=== PATIENT | male | born 1955 | race Caucasian/White ===

== ENCOUNTER 2022-12-28 09:51 | Outpatient (CLI) | payer MEDICARE, BC, SELFPAY ==
--- NOTE | 2022-12-28 10:15 | CRLHL7_ITS ---
For Patients: As a result of the Cures Act, medical imaging exams and procedure reports are released immediately into your electronic medical record. You may view this report before your referring provider. If you have questions, please contact your health care provider. INDICATION: Resting tremors. TECHNIQUE: Brain MRI without contrast. The following sequences were obtained: Sagittal T1 weighted sequence. DWI and ADC mapping sequences. Axial FLAIR and DELL T2 weighted sequences. COMPARISON: None. FINDINGS: No evidence of acute ischemia. No evidence of acute or chronic intracranial blood products. Scattered FLAIR hyperintensities within the supratentorial white matter, typical for chronic microvascular ischemic changes. No mass effect or herniation. No hydrocephalus or extra-axial collections. The pituitary gland, parasellar structures and optic chiasm are normal. Posterior fossa is normal. All the major intracranial vascular structures demonstrate normal flow-related signal. The orbital contents are normal. No calvarial or skull base marrow replacing process. No obstructive sinus disease. Left-sided mastoid fluid. No extracranial soft tissue findings. IMPRESSION: 1. No acute ischemia or other acute intracranial pathology. 2. Mild chronic microvascular ischemic changes within the supratentorial white matter. Dictated by Lorenzo Carpio MD @ 12/28/2022 2:36:21 PM (Electronically Signed)
== END 2022-12-28 09:52 | disposition home or self-care (01) ==
LOC: MRI 09:55
PROVIDERS: PCP Family Medicine; Visit Provider Psychiatry & Neurology Neurology
DX: R25.1 Tremor, unspecified (principal); I67.82 Cerebral ischemia
CPT/HCPCS: 70551

== ENCOUNTER 2023-12-19 07:23 | Outpatient (CLI) | payer MEDICARE, BC, SELFPAY ==
[2023-12-19] MEDS: SODIUM CHLORIDE 0.9 % (FLUSH) 10 ML SYRINGE IVF (09:50)
[2023-12-19] MEDS: REGADENOSON 0.4 MG/5 ML SYRINGE IVP (09:50)
[2023-12-19 11:07] VITALS: BP 116/81; PULSE 81
--- NOTE | 2023-12-19 11:44 | W.PM.STED ---
Stress Test Note Date Date of test: 12/19/23 Providers Primary care provider: Jas Shearer Stress test physician: Joshua Michelle Stress Test Note Stress test ordered: Lexiscan Indication for test: Chest pain Stress test medicine: Lexiscan Results discussion: Patient is a very nice 68-year-old gentleman who presents here for the above test, after discussion the risks benefits and side effects he would like to proceed, cardiac stress test medical history form is reviewed entirely. Pretest EKG shows normal sinus rhythm, with a ventricular rate of 72 and a blood pressure 132/83. Nondescript ST wave changes are noted inferior laterally, with T-wave flattening. Q-waves are noted in lead 2, and AVF. Standard Lexiscan protocol is done over a 5 minute. There were no complications his maximum was 139 which is 108% of the maximum, he had no complaints, and there were no anginal equivalents. Review of the tracing did not show any dysrhythmias, and there was no worsening of his pre-existing ST wave changes. Impression: Negative electrographic portion of Lexiscan Follow up suggested: Await nuclear imaging which will be read by nuclear Medicine. Clinical correlation with this will be needed. Patient recovered well and there were no complications, left this testing facility in good condition.
== END 2023-12-19 07:24 | disposition home or self-care (01) ==
LOC: STRESS 07:24
PROVIDERS: PCP Family Medicine; Visit Provider Family Medicine
DX: R07.9 Chest pain, unspecified (principal)
CPT/HCPCS: 78452; 93016; 93017; A9500; J2785

== ENCOUNTER 2024-11-16 10:45 | Outpatient (RCR) | payer MEDICARE, BC, SELFPAY ==
--- NOTE | 2024-10-19 11:30 | PT.OPEX ---
PT [place] Out[facility] Eval PT [facility] Out[facility] Eval Start: 10/19/24 10:32 Freq: Status: Active Protocol: Document 10/19/24 10:32 CRP (Rec: 10/19/24 11:28 CRP [id number]) E-signed By Stalin Omer PT Physical Therapy Outpatient Evaluation Insurance Information Recert Due Date 01/17/25 Insurance Name Medicare B Medical Diagnosis LBP Post lumbar spine fusion L4-S1 Referring MD Dr Barajas Subjective Subjective 2019 pt had an infection in his spine. Had L4-S1 fusion 2019. About 2 years ago started having LBP. This pain progressed and more recently has gotten pretty bad. Pain is up to 5/10 when standing and walking. Needs to sit a lot to take brakes. Pain calms quickly with sitting. Sleep is fine. Stiff in the morning . 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 No LE pain. No LE numbness/ tingling. 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 Slight lean forward. Hyperlordotic TL spine. Trunk ROM: Flex min/mod dec, Ext mod dec with LBP, R SB mod dec, L SB mod dec with LBP, L rot mod dec with pain, R rot mod dec LE ROM: L LE WNL. R hip ER limited at 40 deg. Bilat hip ext mod restriction. All other R LE motions WNL. SLR: Negative on R. L positive at 65 deg for LBP MMT: Bilat myotomes WNL. Bilat hip ext 4-/5. Bilat hip abd 4-/5. PPIVM testing: flex restricted above L4. SB testing min dec without pain. Bilat rot min dec without pain. Assessment Assessment/Impression Pt presents to the clinic with c/o persistent LBP. Pt had multilevel lumbar fusion dating back to 2019 with a more recent issue of worsening LBP over the last 2 years. Pts signs and sxs are consistent with mechanical dysfunction of the lumbopelvic region and resulting nociceptive pain mechanisms. Pts presentation is characterized by painful loss of lumbar spine ROM, restricted PROM of lumbar spine, adverse neurodynamics, poor lumbopelvic control and lower quadrant weakness. Skilled PT is necessary to address the above impairments and improve functional mobility. 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 Pt will be independent with HEP in 6 weeks. 2. Pt will walk for exer x 15 min with 80% decrease in pain in 10 weeks. 3. 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 Coordination/Communication With Referral Source Treatment Plan/Direct Interventions Gait Training,Joint Mobilization,Manual Therapy, Neuromuscular Re-ed,Self-Care/ Home Management,Therapeutic Activities,Therapeutic Exercises Frequency/Duration 1-2x/wk for 12 weeks Patient Will Be Discharged From Therapy Completion of LTG(s),Skills Plateau,Independent w/HEP, Independently Progressing Evaluation Billing Untimed Code Treatment Minutes 40 Complexity Moderate Certification Information Initial Certification Date 10/19/24 Ending Certification Date 01/17/25 Provider Signature Required Yes Provider Signature Shows Agreement With POC & Medical Necessity Physician NPI Number Write NPI# Here Physician Comment/Change : Physician Signature & Date Requested Please Sign/Date Here
== END 2025-03-16 23:59 | disposition home or self-care (01) ==
PROVIDERS: PCP Family Medicine; Visit Provider Family Medicine
DX: M54.50 Low back pain, unspecified (principal); Z98.1 Arthrodesis status; Z51.89 Encounter for other specified aftercare
CPT/HCPCS: 97110; 97140; 97162

== ENCOUNTER 2025-01-11 14:13 | Outpatient (CLI) | payer MEDICARE, BC, SELFPAY | END 2025-01-11 14:14 | disposition home or self-care (01) | LOC: MRI 14:14 | PROVIDERS: PCP Family Medicine; Visit Provider Orthopaedic Surgery | DX: M25.511 Pain in right shoulder (principal); M75.101 Unspecified rotator cuff tear or rupture of right shoulder, not specified as traumatic; M19.011 Primary osteoarthritis, right shoulder | CPT/HCPCS: 73221 ==

== ENCOUNTER 2025-01-25 15:54 | Outpatient (CLI) | payer MEDICARE, BC, SELFPAY | END 2025-01-25 15:55 | disposition home or self-care (01) | PROVIDERS: PCP Family Medicine; Visit Provider Family Medicine | DX: R53.83 Other fatigue (principal); R35.1 Nocturia; N40.1 Benign prostatic hyperplasia with lower urinary tract symptoms; Z13.21 Encounter for screening for nutritional disorder; Z01.818 Encounter for other preprocedural examination; Z12.5 Encounter for screening for malignant neoplasm of prostate | CPT/HCPCS: 82607; 84443; G0103 ==

== ENCOUNTER 2025-02-04 06:41 | Day surgery (SDC) | payer MEDICARE, BC, SELFPAY ==
[2025-02-04] VITALS (14 sets, daily range): BP systolic 102–128; BP diastolic 53–75; PULSE 58–73; RESP 12–19; TEMP 36.1–36.4; O2SAT 89–96; BMI 31.7
[2025-02-04] MEDS: ACETAMINOPHEN 500 MG TABLET 1000 MG PO (07:25)
[2025-02-04] MEDS: SODIUM CHLORIDE 0.9 % (FLUSH) 10 ML SYRINGE IVF (07:25)
[2025-02-04] MEDS: LACTATED RINGERS 1000 ML 1,000 ML 100 ML IV ×2 (07:25→11:17)
[2025-02-04] MEDS: OXYCODONE (CR) 10 MG TAB.ER.12H PO (07:25)
[2025-02-04] MEDS: CELECOXIB 200 MG CAPSULE PO (07:25)
[2025-02-04] MEDS: MIDAZOLAM HCL 1 MG/ML inj IVP (08:30)
[2025-02-04] MEDS: fentaNYL 100 MCG/2 ML inj IVP (08:30)
--- NOTE | 2025-02-04 08:49 | SUR.PREOP ---
TIME?OUT:?0830 PT/RN/MDA?VERIFICATION?OF?SURGICAL?SITE,?PROCEDURE,?AND?CONSENT OBTAINED?PRIOR?TO?INVASIVE?PROCEDURE.
[2025-02-04] MEDS: CEFAZOLIN 2 GM INJ IVP (08:55)
--- NOTE | 2025-02-04 09:36 | P.ANES_ITS ---
Anesthesia Charges Start Date/Time Anesthesia Start Date: 02/04/25 Anesthesia Start Time: 08:40 Stop Date/Time Anesthesia Stop Date: 02/04/25 Anesthesia Stop Time: 10:50 Summary Extremes of Age - Over 70 or under 1: MDA Coding CPT Codes CPT Codes: ANESTH SHOULDER REPLACEMENT - 76134 ([id number]) P3 - PATIENT W/SEVERE SYS DISEASE, QK - FIRER RETORT 2-4 CNCRNT ANES PROC, QX - MOBILE ELECTRONICS INSTALLER SVC W/ MD MED DIRECTION Additional Codes: Summary - Extremes of Age - Over 70 or under 1: MDA ([id number])
--- NOTE | 2025-02-04 09:36 | P.NB_ITS ---
Nerve Block Nerve Block Time Seen by Provider: 08:32 Date Seen: 02/04/25 Type of block requested by surgeon for post-operative analgesia: supraclavicular Side: right Time out performed: Yes Verification of patient name: Yes Verification of date of : Yes Site marking: site marked Name of person performing procedure: Clarke Continuous monitoring Was continuous monitoring of O2 sat, B/P, bead forming machine operator, recorded every 15 minutes?: Yes Procedure Checklist: sterile prep, needles and gloves Ultrasound guided. Images saved: Yes Medications given in 5ml increments after negative aspiration: Ropivicaine %: 0.5 mL: 20 Needle gauge: 22 Precedex (mcg): 25 Patient tolerated procedure well: Yes Block Charges Block Charge (with Pro Fee): Brachial Plexus Use of Ultrasound Machine for Block: Yes- US Guidance/pain block
--- NOTE | 2025-02-04 09:36 | W.ANESCHARGE ---
Anesthesia Charges Start Date/Time Anesthesia Start Date: 02/04/25 Anesthesia Start Time: 08:40 Stop Date/Time Anesthesia Stop Date: 02/04/25 Anesthesia Stop Time: 10:50 Summary Extremes of Age - Over 70 or under 1: MDA Coding CPT Codes CPT Codes: ANESTH SHOULDER REPLACEMENT - 65144 ([id number]) P3 - PATIENT W/SEVERE SYS DISEASE, QK - DANCE ARTIST 2-4 CNCRNT ANES PROC, QX - BASTING CLEANER SVC W/ MD MED DIRECTION Additional Codes: Summary - Extremes of Age - Over 70 or under 1: MDA ([id number])
--- NOTE | 2025-02-04 10:25 | P.ORPRC_ITS ---
Procedure Note Date of procedure: 02/04/25 Procedure: PREOPERATIVE DIAGNOSIS: Right shoulder rotator cuff tear, labral tearing, AC joint arthrosis POSTOPERATIVE DIAGNOSIS: Right shoulder rotator cuff tear, labral tearing, AC joint arthrosis NAME OF OPERATION: Right shoulder arthroscopic subacromial decompression, limited glenohumeral joint debridement, distal clavicle excision, mini open rotator cuff repair SURGEON: Sj Lindsey MD MACHINED PARTS METAL SPRAYER: Ana Valderrama PA-C ANESTHESIA: Supraclavicular block plus general endotracheal ESTIMATED BLOOD LOSS: 5 mL COMPLICATIONS: None SPECIMENS: None DRAINS: None PREOPERATIVE ANTIBIOTICS: Ancef 2 grams INDICATIONS: The patient is a 69-year-old with a history of right shoulder pain secondary to the above diagnoses. Despite appropriate non operative management, they continue to have symptoms. Operative intervention was recommended. The risks, benefits and expected outcomes were discussed in detail. These included but were not limited to: Infection, bleeding, injury to blood vessel or nerve, venous thromboembolism. All questions were answered to their satisfaction. PROCEDURE: A supraclavicular block was placed by Anesthesia. General anesthesia was administered. The patient was placed in the high beach chair position. The right shoulder was prepped and draped in the usual sterile fashion. The glenohumeral joint was infiltrated with 20 mL of normal saline with epinephrine. The posterior portal was established, the arthroscope was introduced. The anterior portal was established, Diagnostic arthroscopy was performed with findings as follows: The biceps is torn and retracted out of the glenohumeral joint . The anterior, posterior and superior labrum shows age- appropriate degenerative tearing. Articular surfaces on the humeral head shows a small patch of grade 2 change centrally, the glenoid has some grade 2/3 change inferiorly. There are no loose bodies. There is a full-thickness tear of the supraspinatus. The arthroscope was placed in the subacromial space, the lateral portal was e stablished. The Arthrex Whitetail was used to dissect the acromion free. The CA ligament was recessed off the anterior acromion, the AC joint was exposed. There was a huge hook to the anterior acromion. This appears like an os acromiale, but is more anteriorly based. It may be calcification of the CA ligament or a true os acromiale. It was freed up with the Whitetail and removed with the pituitary rongeur. The acromioplasty was performed with the bur in the posterior portal. The bur was then placed in the lateral portal and the lateral and anterior aspect of the acromion were resected. The undersurface of the distal clavicle was resected through the lateral portal. Finally, the bur was placed in the anterior portal and the remainder of the distal clavicle was resected for a total of 10 mm. An accessory anterolateral portal was placed. The subacromial/subdeltoid bursa was aggressively debrided. There is a full-thickness tear of the supraspinatus and infraspinatus. Arthroscopic instruments were removed. The accessory anterolateral portal was extended proximally and distally, subcutaneous dissection was taken with electrocautery to the deltoid. The deltoid was divided in line with its fibers. The static retractor was placed. The subacromial/subdeltoid bursa was debrided with the Guerra scissors. The greater tuberosity was debrided to punctate bleeding bone using the arthroscopic bur. We attempted to find the biceps in the bicipital groove, but were unsuccessful. We elected not to proceed with sub pec biceps tenodesis. Two Arthrex BioComposite FiberTak anchors were placed just off the articular surface. Both limbs of the FiberWire and fiber tape were passed using the scorpion. A fiber link was placed in the leading edge of the rotator cuff x2. We tied the 2 central FiberWire sutures over the rotator cuff. We then proceeded with a lateral row of SwiveLock anchors x 2 crossing the FiberTape and incorporating the FiberWire and fiber link into each lateral row anchor. This provides an anatomic, watertight repair of the rotator cuff. There is no tension on the repair with the shoulder at 0? abduction. The wound was irrigated with normal saline off the pump. The deltoid was repaired with an 0 Vicryl in an interrupted nsaoip-rd-ewewa fashion. Subcutaneous tissues were closed with a 3-0 Vicryl. Skin was closed with a 3-0 Monocryl in a subcuticular fashion. A dry dressing and sling were applied. Sponge and needle counts were correct x2. The patient tolerated the procedure well. There were no apparent complications. They were carefully transferred to the hospital bed and taken to the postanesthesia care unit in satisfactory condition. PLAN: The patient will be discharged to home. No active range of motion of the shoulder will be allowed for 6 weeks postoperatively. They can work on active range of motion of the elbow, wrist and fingers. They will follow up in the office next week for a wound check and an AP and transscapular Y-view of the shoulder prior to being seen.
--- NOTE | 2025-02-04 10:52 | P.ANES_ITS ---
Anesthesia Charges Start Date/Time Anesthesia Start Date: 02/04/25 Anesthesia Start Time: 08:40 Stop Date/Time Anesthesia Stop Date: 02/04/25 Anesthesia Stop Time: 10:50 Summary Extremes of Age - Over 70 or under 1: SCREEN PRINTING PRESS OPERATOR Coding CPT Codes CPT Codes: ANESTH SURGERY OF SHOULDER - 74377 ([id number]) P3 - PATIENT W/SEVERE SYS DISEASE, QK - BATTERY PLATE REMOVER 2-4 CNCRNT ANES PROC, QX - SCREEN PRINTING PRESS OPERATOR SVC W/ MD MED DIRECTION Additional Codes: Summary - Extremes of Age - Over 70 or under 1: SCREEN PRINTING PRESS OPERATOR ([id number])
--- NOTE | 2025-02-04 10:52 | W.ANESCHARGE ---
Anesthesia Charges Start Date/Time Anesthesia Start Date: 02/04/25 Anesthesia Start Time: 08:40 Stop Date/Time Anesthesia Stop Date: 02/04/25 Anesthesia Stop Time: 10:50 Summary Extremes of Age - Over 70 or under 1: FISH AND GAME WARDEN Coding CPT Codes CPT Codes: ANESTH SURGERY OF SHOULDER - 44238 ([id number]) P3 - PATIENT W/SEVERE SYS DISEASE, QK - MATHEMATICAL STATISTICIAN 2-4 CNCRNT ANES PROC, QX - FISH AND GAME WARDEN SVC W/ MD MED DIRECTION Additional Codes: Summary - Extremes of Age - Over 70 or under 1: FISH AND GAME WARDEN ([id number])
== END 2025-02-04 13:16 | disposition home or self-care (01) ==
LOC: OR 06:42
PROVIDERS: PCP Family Medicine; Visit Provider Orthopaedic Surgery
PROC: (CPT 23412; principal; 2025-02-04 08:45)
DX: M75.101 Unspecified rotator cuff tear or rupture of right shoulder, not specified as traumatic (principal); M19.011 Primary osteoarthritis, right shoulder; S43.431A Superior glenoid labrum lesion of right shoulder, initial encounter; G89.18 Other acute postprocedural pain
CPT/HCPCS: 29826; 29824; 29822; 23412; 01630; 01638; 64415; 76942; 99100; A9270; C1713; J0690; J1100; J2250; J2371; J2405; J2704; J2795; J3010; J3490; J7120

== ENCOUNTER 2025-02-05 10:28 | Emergency (ER) | payer MEDICARE, BC, SELFPAY ==
--- OUTSIDE RECORDS SUMMARY | 2025-02-05 10:30 | XMS_ITS ---
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 Medications Administered No information available. Allergies, Adverse Reactions, Alerts Observed no known allergies at Results Date Name Value Unit Range Flag Description Office Visit: Office Visit f ax MEDS REVIEW Done Documenta tion of current medications (procedure) DEMENTIA2 Assessment of cognition performed and results reviewed. Total score [MMS E] [id number] Normal Total scor e [MoCA] MOCA SCORE 28 Total scor e [MMSE] Plan of Care Type Date Detail Appointment 10:00 AM nAnmarie Peguero PA-C, [address], [address], [place], [address], Appointment 09:20 AM [place], [address], [address], [place], [address], Pending order Follow up Pending order Follow up Pending order Follow up LELA Pending order Follow up LELA Pending order Home Sleep Study - HST Pending order Home Sleep Study - HST Pending order Work Note Pending order Patient Instruct ions Pending order Patient Instruct ions Pending order Work Note Procedures Code Procedure Name Date Entry Date [facility] 74801-0 MOCA ORDERS Patient Instructions ORDERS Patient Instructions Vital Signs No information available. Immunizations No information available. Advance Directives No information available.
--- OUTSIDE RECORDS SUMMARY | 2025-02-05 10:31 | XMS_ITS | Clinical Summary ---
Author Organization [facility] Address [address] , [address] [place] [address] Phone Care Team Providers Care Felt Hat Inspector And Packer Name Role Phone [facility] Unavailable Unava ilable Conditions or Problems Problem Name Problem Code Onset Date Status Entry Date Provider Comment Standard Description Annotate Apneic episode 0105976 (SNOMED CT) 02/02 Active 02/02 Annmarie Peguero PA-C Apnea Parkinson's disease without dyskinesia, without mention of fluctuations 17432830 (SNOMED CT) 08/05 Active 08/05 Arleth De Jesus Parkinson's disease Fatigue 96261138 (SNOMED CT) 02/03 Active 02/03 Uziel Bautista MD Fatigue Hx of snoring 617628035 (SNOMED CT) 02/03 Active 02/03 Uziel Bautista MD H/O: respiratory disease 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 02/01 Uziel Bautista MD Parkinsonism Parkinson's disease 52939059 (SNOMED CT) 08/05 Inactive 08/05 Uziel Bautista MD Parkinson's disease Parkinsonism 90560578 (SNOMED CT) 02/01 Removed 02/01 Annmarie Peguero PA-C Parkinsonism Cog wheel rigidity 00472357 (SNOMED CT) 12/21 Active 12/21 Uziel Bautista MD Cogwheel muscle rigidity Bradykinesia 965694872 (SNOMED CT) 12/21 Active 12/21 Uziel Bautista MD Bradykinesia Resting tremor 88257606 (SNOMED CT) 12/21 Active 12/21 Uziel Bautista MD Resting tremor Medications Medication Instructions Start Date Stop Date Generic Name NDC Provider CARBIDOPA-LEVO DOPA 25-100 MG TABS 2 tablet by mouth three times a day ; take it about 1 hr before meals 8 carbidopa-lev odopa [id number] Annmarie WASHBURN-C CARBIDOPA-LEVO DOPA 25-100 MG TABS Take 2 tablet by mouth three times a day ; take it about 1 hr before meals 8 carbidopa-lev odopa [id number] Annmarie WASHBURN-C CARBIDOPA-LEVO DOPA 25-100 MG TABS 1/2 tablet by mouth as directed half tab 3x per day at 6 am, 1030 am pm, and 4 pm. Increase by half tab every week until 2 tabs 3x per day. 3 carbidopa-lev odopa [id number] Uziel Bautista MD CARBIDOPA-LEVO DOPA 25-100 MG TABS 2 tablet by mouth three times a day ; take it about 1 hr before meals 8 carbidopa-lev odopa 58136571111 Uziel Bautista MD TAMSULOSIN HCL 0.4 MG CAPS tamsulosin [id number] Annmarie WASHBURN-C CARBIDOPA-LEVO DOPA 25-100 MG TABS 1/2 tablet by mouth as directed half tab 3x per day at 6 am, 1030 am pm, and 4 pm. Increase by half tab every week until 2 tabs 3x per day. 3 carbidopa-lev odopa [id number] Uziel Bautista MD Medications Administered No information available. Allergies, Adverse Reactions, Alerts Observed no known allergies at Results Date Name Value Unit Range Flag Description Internal Other: Verbal Autho rization/Emergency Contact - OBS VERBAL_EMER DONE Verbal authorization and emergency contact Internal Other: Authorizatio n - OBS [email or web address] Yes Authoriza tion: Release of Information - Authorize [facility] - Payment and Healthcare Operations ROIAUTHOTHER Yes Authoriz ation: Release of Information - Authorize Others/Insurance - Payment and Healthcare Operations HIECONSENT Yes Consent To Release information to the Health Information Exchange (HIE) [email or web address] Yes Authorizat ion: Authorization for [facility] to leave messages, voicemail, send text messages, send emails AUTHRELHCARE Yes Authoriz ation: Release/Retrieval of Information to/from Healthcare Facilities, Pharmacy Benefit Payers and Providers AUTHPRIVPRAC Yes Authoriz ation: Notice of privacy practices AUTHBENEFIT Yes Authoriza tion: Assignment of Benefits and Payment Agreement Office Visit: Office Visit f ax MEDS REVIEW Done Documenta tion of current medications (procedure) DEMENTIA2 Assessment of cognition performed and results reviewed. Total score [M MSE] [id number] Normal Total scor e [MoCA] MOCA SCORE 28 Total scor e [MMSE] Plan of Care Type Date Detail Appointment 10:00 AM Annmarie Peguero PA-C, [address], [address], [place], [address], Appointment 09:20 [place], [address], [address], [place], [address], Referral Other Referral Pending order Follow up Pending order Follow up Pending order Follow up LELA Pending order Follow up LELA Pending order Home Sleep Study - HST Pending order Home Sleep Study - HST Pending order Follow up LELA Pending order Work Note Pending order Patient Instruct ions Pending order Patient Instruct ions Pending order Work Note Pending order Work Note Pending order Follow up Pending order Follow up LELA Pending order Follow up LELA Pending order Follow up Pending order Follow up with N eurologist or LELA Pending order Follow up in cli michelle or telemedicine Pending order Follow up in cli michelle or telemedicine Pending order [facility] Pending order MRI-Brain W/O Procedures Code Procedure Name Date Entry Date ORDERS Follow up LELA LOINC 63719-1 MOCA ORDERS Patient Instructions ORDERS Patient Instructions ORDERS Other Referral ORDERS Follow up LELA ORDERS Follow up ORDERS Work Note LOINC 80390-2 MOCA LOINC 87589-4 MOCA LOINC 33527-5 MOCA [facility]-[id number] Documentation of current medicatio ns SCT-[id number] Documentation of current medicatio ns ORDERS Follow up with Neurologist or LELA SCT-[id number] Documentation of current medicatio ns ORDERS Follow up in clinic or telemedicine 08/05 ORDERS [facility] 20 07/02/17 ORDERS Follow up in clinic or telemedicine 02/01 [id number] MRI-Brain W/O Vital Signs Date Name Value Unit Description Heart Rate 68 /min pulse rate Immunizations No information available. Advance Directives No information available.
[2025-02-05 10:37] VITALS: BP 125/86; PULSE 69; RESP 18; TEMP 36.1; O2SAT 96; BMI 28.4
--- NOTE | 2025-02-05 11:22 | ED_ITS ---
HPI - General Adult General Chief complaint: Post Op Complication Stated complaint: surgery 02/04 lots of pain Time Seen by Provider: 02/05/25 10:49 History of Present Illness HPI narrative: Patient is a 69-year-old gentleman who had repair of a torn rotator cuff yesterday. He was doing fairly well with his pain control which included oxycodone until this morning when the block on the right shoulder of stop working. Since that time he has had refractory pain limited to the right rozina ulder. It is worse with activity. Patient has chronic parkinsonism and that has been unchanged. He has no signs of systemic infection. No drainage or discharge no difficulties with the incisions. Patient is requesting improved pain control. Related Data Home Medications ?Medication ?Instructions ?Recorded ?Confirmed carbidopa 25 mg-levodopa 100 mg 2 tab PO TID 01/25/25 02/05/25 tablet Previous Rx's ?Medication ?Instructions ?Recorded finasteride 5 mg tablet 5 mg PO QDAY #90 tabs 01/25/25 oxycodone 5 mg tablet 5 mg PO Q4H PRN pain #42 tabs 02/04/25 Allergies Allergy/AdvReac Type Severity Reaction Status Date / Time No Known Drug Allergies Allergy Verified 02/05/25 10:44 Review of Systems Status of ROS: Reports: 10 or more systems reviewed and unremarkable except as noted in History and below [facility] Medical History Hx of osteomyelitis ?Z87.39 - Personal history of other diseases of the musculoskeletal system and connective tissue (ICD-10) Osteomyelitis ?M86.9 - Osteomyelitis, unspecified (ICD-10) Discitis of lumbosacral region ?M46.47 - Discitis, unspecified, lumbosacral region (ICD-10) Sanborn of toe ?L84 - Corns and callosities (ICD-10) Surgical History History of arthroscopy of right shoulder (02/04/25) ?Z98.890 - Other specified postprocedural states (ICD-10) Status post lumbar spinal fusion ?Z98.1 - Arthrodesis status (ICD-10) Social History Narrative: -Basilia Smoking Status: Never smoker Do you use any of these nicotine containing products: None Second hand tobacco smoke exposure: No How often do you have a drink containing alcohol: never AUDIT-C Alcohol total score: 0 Non-prescribed substance use: denies use Caffeine: No Are you now , , , , never or living with a partner: Social isolation score (0-1 are the most socially isolated patients): 1 Exam Narrative: Exam Narrative: EXAM GENERAL: Patient appears comfortable and well. EYES: No scleral icterus. ENT: Tympanic membranes and oropharynx normal. THYROID: no thyroid nodules or thyromegaly. LYMPH: No supraclavicular or cervical lymphadenopathy. SKIN: Surgical incisions clean and dry the right shoulder. EXT: No dependent lower extremity pedal edema. HEART: Regular rate and rhythm with no murmurs, rubs, or gallops. LUNGS: Clear to auscultation bilaterally with no crackles or wheezes. ABD: Soft, non tender, non distended. PSYCH: Good eye contact, speech is not pressured. Musculoskeletal: Range of motion mildly reduced as to be expected postoperatively. Const: Vital Signs, click to edit/add: Vital Signs - 24 hr 02/05/25 10:37 Temperature 97 F L Pulse Rate [Right Pulse Oximeter] 69 Respiratory Rate 18 Blood Pressure [Ri ght Upper Arm] 125/86 Pulse Oximetry 96 Oxygen Delivery Me thod Room Air Course Course ED Course: Patient seen and examined. Will have anesthesia repeat shoulder block and then reassess. Vital Signs Vital signs: Initial Vital Signs Temperature 97 F L 02/05/25 10:37 Temperature Source Temporal Artery Scan 02/05/25 10:37 Pulse Rate 69 02/05/25 10:37 Pulse Rhythm Regular 02/05/25 10:37 Pulse Strength 3+ Normal 02/05/25 10:37 Respiratory Rate 18 02/05/25 10:37 Blood Pressure 125/86 02/05/25 10:37 Blood Pressure Mean 99 02/05/25 10:37 Blood Pressure Position Sitting 02/05/25 10:37 Pulse Oximetry 96 02/05/25 10:37 Oxygen Delivery Method Room Air 02/05/25 10:37 Vital Signs Temperature 97 F L 02/05/25 10:37 Pulse Rate 69 02/05/25 10:37 Respiratory Rate 18 02/05/25 10:37 Blood Pressure 125/86 02/05/25 10:37 Pulse Oximetry 96 02/05/25 10:37 Oxygen Delivery Method Room Air 02/05/25 10:37 Temperature 97 F L 02/05/25 10:37 Pulse Rate 69 02/05/25 10:37 Respiratory Rate 18 02/05/25 10:37 Blood Pressure 125/86 02/05/25 10:37 Pulse Oximetry 96 02/05/25 10:37 Oxygen Delivery Method Room Air 02/05/25 10:37 Medical Decision Making MDM Narrative Medical decision making narrative: Patient is a 69-year-old gentleman comes in today with postoperative pain 1 day following rotator cuff repair on the right. Examination is normal postoperatively no signs of infection. We did have anesthesia woman repeat the block. He will continues oxycodone Tylenol rest ice and follow-up as directed. No signs of any other issues during today's assessment. Discharge Plan Discharge Clinical Impression: Post-operative pain Patient Disposition: Home, Self-Care Condition: Stable Instructions: Pain Management (ED) Additional Instructions: Oxycodone as directed Tylenol Ice Continue current cares. Activity Level: No Restrictions Discharge Diet: Regular Prescriptions: No Action finasteride 5 mg tablet 5 mg PO QDAY Qty: 90 3RF carbidopa-levodopa 25-100 mg tablet 2 tab PO TID oxycodone 5 mg tablet 5 mg PO Q4H PRN (Reason: pain) Qty: 42 0RF Follow Up/Referrals: Jas Shearer MD [Primary Care Provider] - Stand Alone Forms: SeeClickFix Info Instructions
--- NOTE | 2025-02-05 11:38 | W.PM.NB ---
Nerve Block Nerve Block Time Seen by Provider: 11:15 Date Seen: 02/05/25 Type of block requested by surgeon for post-operative analgesia: supraclavicular Side: left Time out performed: Yes Verification of patient name: Yes Verification of date of : Yes Site marking: site marked Name of person performing procedure: Jonathan Villavicencio Procedure Ultrasound guided. Images saved: Yes Medications given in 5ml increments after negative aspiration: Marcaine %: 0.5 mL: 5 Needle gauge: 20 and Exparel mL: 10 Needle gauge: 22 Decadron (mg): 10 Precedex (mcg): 20 Block Charges Block Charge (with Pro Fee): Brachial Plexus Use of Ultrasound Machine for Block: Yes- US Guidance/pain block
--- OUTSIDE RECORDS SUMMARY | 2025-02-05 12:01 | XMS_ITS ---
Author Organization [facility] Address 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 Medications Administered No information available. Allergies, Adverse Reactions, Alerts Observed no known allergies at Results Date Name Value Unit Range Flag Description Office Visit: Office Visit f ax MEDS REVIEW Done Documenta tion of current medications (procedure) DEMENTIA2 Assessment of cognition performed and results reviewed. Total score [MMS E] [id number] Normal Total scor e [MoCA] MOCA SCORE 28 Total scor e [MMSE] Plan of Care Type Date Detail Appointment 10:00 AM Annmarie Peguero PA-C, [address], [address], [place], [address], Appointment 09:20 [place], [address], [address], [place], [address], Pending order Follow up Pending order Follow up Pending order Follow up LELA Pending order Follow up LELA Pending order Home Sleep Study - HST Pending order Home Sleep Study - HST Pending order Work Note Pending order Patient Instruct ions Pending order Patient Instruct ions Pending order Work Note Procedures Code Procedure Name Date Entry Date [facility] 71389-2 MOCA ORDERS Patient Instructions ORDERS Patient Instructions Vital Signs No information available. Immunizations No information available. Advance Directives No information available.
--- OUTSIDE RECORDS SUMMARY | 2025-02-05 12:01 | XMS_ITS | Clinical Summary ---
Author Organization [facility] Address [address] , [address] [place] [address] Phone Care Team Providers Care Slinger Sequins Name Role Phone [facility], [facility] Unavailable Unava ilable Conditions or Problems Problem Name Problem Code Onset Date Status Entry Date Provider Comment Standard Description Annotate Apneic episode 7688147 (SNOMED CT) 02/02 Active 02/02 Annmarie Peguero PA-C Apnea Parkinson's disease without dyskinesia, without mention of fluctuations 01979905 (SNOMED CT) 08/05 Active 08/05 Arleth De Jesus Parkinson's disease Fatigue 88675892 (SNOMED CT) 02/03 Active 02/03 Uziel Bautista MD Fatigue Hx of snoring 474023413 (SNOMED CT) 02/03 Active 02/03 Uziel Bautista MD H/O: respiratory disease Parkinsonism 36156708 (SNOMED CT) 02/01 Resolved 02/01 Uziel Bautista MD Parkinsonism Parkinson's disease 09463924 (SNOMED CT) 08/05 Inactive 08/05 Uziel Bautista MD Parkinson's disease Parkinsonism 47095938 (SNOMED CT) 02/01 Removed 02/01 Annmarie Peguero PA-C Parkinsonism Cog wheel rigidity 71482783 (SNOMED CT) 12/21 Active 12/21 Uziel Bautista MD Cogwheel muscle rigidity Bradykinesia 323905504 (SNOMED CT) 12/21 Active 12/21 Uziel Bautista MD Bradykinesia Resting tremor 72359056 (SNOMED CT) 12/21 Active 12/21 Uziel Bautista MD Resting tremor Medications Medication Instructions Start Date Stop Date Generic Name NDC Provider CARBIDOPA-LEVO DOPA 25-100 MG TABS 2 tablet by mouth three times a day ; take it about 1 hr before meals 8 carbidopa-lev odopa 90162300921 Annmarie WASHBURN-C CARBIDOPA-LEVO DOPA 25-100 MG TABS Take 2 tablet by mouth three times a day ; take it about 1 hr before meals 8 carbidopa-lev odopa 78719439199 Annmarie WASHBURN-C CARBIDOPA-LEVO DOPA 25-100 MG TABS 1/2 tablet by mouth as directed half tab 3x per day at 6 am, 1030 am pm, and 4 pm. Increase by half tab every week until 2 tabs 3x per day. 3 carbidopa-lev odopa 18234275743 Uziel Bautista MD CARBIDOPA-LEVO DOPA 25-100 MG TABS 2 tablet by mouth three times a day ; take it about 1 hr before meals 8 carbidopa-lev odopa 45219380051 Uziel Bautista MD TAMSULOSIN HCL 0.4 MG CAPS tamsulosin 83115350658 Annmarie WASHBUNR-C CARBIDOPA-LEVO DOPA 25-100 MG TABS 1/2 tablet by mouth as directed half tab 3x per day at 6 am, 1030 am pm, and 4 pm. Increase by half tab every week until 2 tabs 3x per day. 3 carbidopa-lev odopa 20634387767 Uziel Bautista MD Medications Administered No information [...] and results reviewed. Total score [M MSE] [id number] Normal Total scor e [MoCA] MOCA SCORE 28 Total scor e [MMSE] Plan of Care Type Date Detail Appointment 10:00 AM Annmarie Peguero PA-C, [address], [address], [place], [address], Appointment 09:20 [place], [address], [address], [place], [address], Referral Other Referral Pending order Follow up [...] Entry Date ORDERS Follow up LELA LOINC 98858-3 MOCA ORDERS Patient Instructions ORDERS Patient Instructions ORDERS Other Referral ORDERS Follow up LELA ORDERS Follow up ORDERS Work Note LOINC 14585-0 MOCA LOINC 50897-3 MOCA LOINC 11997-2 MOCA [facility]-[id number] Documentation of current medicatio ns SCT-[id number] Documentation of current medicatio ns ORDERS Follow up with Neurologist or LELA SCT-[id number] Documentation of current medicatio ns ORDERS Follow up in clinic or telemedicine 08/05 ORDERS [facility] Therapy 20 07/02/17 ORDERS Follow up in clinic or telemedicine 02/01 [id number] MRI-Brain W/O Vital Signs Date Name Value Unit Description Heart Rate 68 /min pulse rate Immunizations No information available. Advance Directives No information available.
== END 2025-02-05 12:02 | disposition home or self-care (01) ==
LOC: ED 11:59
PROVIDERS: Emergency Provider Internal Medicine; PCP Family Medicine
DX: G89.18 Other acute postprocedural pain (principal)
CPT/HCPCS: 76942; 99283; J0665; J0666

== ENCOUNTER 2025-03-20 09:29 | Inpatient (IN) | payer MEDICARE, BC, SELFPAY ==
[2025-03-20] VITALS (55 sets, daily range): BP systolic 107–173; BP diastolic 73–104; PULSE 64–85; RESP 11–19; TEMP 36.1–36.6; O2SAT 92–98; BMI 28.9
--- OUTSIDE RECORDS SUMMARY | 2025-03-20 09:31 | XMS_ITS | Clinical Summary ---
Author Organization [facility] Address [address] , [address] [place] [address] Phone Care Team Providers Care Chicken Catcher Name Role Phone Rosey Gill Unavailable Conditions or Problems Problem Name Problem Code Onset Date Status Entry Date Provider Comment Standard Description Annotate Apneic episode 4559690 (SNOMED CT) 02/02 Active 02/02 Annmarie Peguero PA-C Apnea Parkinson's disease without dyskinesia, without mention of fluctuations 34658325 (SNOMED CT) 08/05 Active 08/05 Arleth Neal Parkinson's disease Fatigue 36485251 (SNOMED CT) 02/03 Active 02/03 Uziel Bautista MD Fatigue Hx of snoring 133147955 (SNOMED CT) 02/03 Active 02/03 Uziel Bautista MD H/O: respiratory disease Parkinsonism 86326106 (SNOMED CT) 02/01 Resolved 02/01 Uziel Bautista MD Parkinsonism Parkinson's disease 59594582 (SNOMED CT) 08/05 Inactive 08/05 Uziel Bautista MD Parkinson's disease Parkinsonism 51390436 (SNOMED CT) 02/01 Removed 02/01 Annmarie Peguero PA-C Parkinsonism Cog wheel rigidity 10815716 (SNOMED CT) 12/21 Active 12/21 Uziel Bautista MD Cogwheel muscle rigidity Bradykinesia 963409740 (SNOMED CT) 12/21 Active 12/21 Uziel Bautista MD Bradykinesia Resting tremor 03435696 (SNOMED CT) 12/21 Active 12/21 Uziel Bautista MD Resting tremor Medications Medication Instructions Start Date Stop Date Generic Name NDC Provider CARBIDOPA-LEVO DOPA 25-100 MG TABS 2 tablet by mouth three times a day ; take it about 1 hr before meals 8 carbidopa-lev odopa 58447399811 Annmarie WASHBURN-Miroslava CARBIDOPA-LEVO DOPA 25-100 MG TABS Take 2 tablet by mouth three times a day ; take it about 1 hr before meals 8 carbidopa-lev odopa 81281322710 Annmarie WASHBURN-Miroslava CARBIDOPA-LEVO DOPA 25-100 MG TABS 1/2 tablet by mouth as directed half tab 3x per day at 6 am, 1030 am pm, and 4 pm. Increase by half tab every week until 2 tabs 3x per day. 3 carbidopa-lev odopa 21443851655 Uziel Bautista MD CARBIDOPA-LEVO DOPA 25-100 MG TABS 2 tablet by mouth three times a day ; take it about 1 hr before meals 8 carbidopa-lev odopa 35413704372 Uziel Bautista MD TAMSULOSIN HCL 0.4 MG CAPS tamsulosin 87099551561 Annmarie WASHBURN- CARBIDOPA-LEVO DOPA 25-100 MG TABS 1/2 tablet by mouth as directed half tab 3x per day at 6 am, 1030 am pm, and 4 pm. Increase by half tab every week until 2 tabs 3x per day. 3 carbidopa-lev odopa 31771090149 Uziel Bautista MD Medications Administered No information [...] and results reviewed. Total score [M MSE] [id number] Normal Total scor e [MoCA] MOCA SCORE 28 Total scor e [MMSE] Plan of Care Type Date Detail Appointment 10:00 AM Annmarie Peguero PA-C, [address], [address], [place], [address], Appointment 09:20 [place], [address], [address], [place], [address], Referral Other Referral Pending order Follow up [...] Entry Date ORDERS Follow up LELA LOINC 29764-1 MOCA ORDERS Patient Instructions ORDERS Patient Instructions ORDERS Other Referral ORDERS Follow up LELA ORDERS Follow up ORDERS Work Note LOINC 28083-6 MOCA LOINC 34175-0 MOCA LOINC 24911-0 MOCA [facility]-[id number] Documentation of current medicatio ns SCT-[id number] Documentation of current medicatio ns ORDERS Follow up with Neurologist or LELA SCT-[id number] Documentation of current medicatio ns ORDERS Follow up in clinic or telemedicine 08/05 ORDERS [facility] L[facility] Therapy 20 07/02/17 ORDERS Follow up in clinic or telemedicine 02/01 [id number] MRI-Brain W/O Vital Signs Date Name Value Unit Description Heart Rate 68 /min pulse rate Immunizations No information available. Advance Directives No information available.
--- NOTE | 2025-03-20 10:12 | CRLHL7_ITS ---
For Patients: As a result of the Cures Act, medical imaging exams and procedure reports are released immediately into your electronic medical record. You may view this report before your referring provider. If you have questions, please contact your health care provider. INDICATION: Redness and swelling x1 week near incision. Rotator cuff surgery on 02/04. TECHNIQUE: Right shoulder three views. COMPARISON: Right shoulder radiographs 02/10/2025. FINDINGS: There is new ill-defined lucency and cortical irregularity about the greater tuberosity of the humerus. Equivocal new lucency involving the lateral acromion as well. Degenerative changes, as before. No displaced fracture. Soft tissue swelling about the lateral shoulder. IMPRESSION: New ill-defined lucency and cortical irregularity about the greater tuberosity of the humerus, concerning for osteomyelitis. There is equivocal involvement of the lateral acromion as well. Follow-up MRI without and with contrast may prove useful for further evaluation. Dictated by Barron Leblanc MD @ 03/20/2025 12:00:03 PM Dictated by: Barron Leblanc MD @ 03/20/2025 12:00:19 (Electronically Signed)
--- NOTE | 2025-03-20 10:28 | ED.GENADULT ---
HPI - General Adult General Date Seen: 03/20/25 Chief complaint: Post Op Complication Stated complaint: Rotary cuff surgery last month, poss inf. Time Seen by Provider: 03/20/25 09:31 Source: patient, family, RN notes reviewed and old records reviewed Mode of arrival: ambulatory Limitations: no limitations History of Present Illness HPI narrative: Patient is a very nice 69-year-old gentleman who underwent right shoulder arthroscopic rotator cuff surgery, on 02/04/2025. He notes over the last week or so, he has had increasing redness of his right wound. He was in to see Dr. Lindsey on 03/15/25. He notes that today it is more swollen, he does not have a lot of discomfort however with this and no problems with internal external rotation. He has had no fevers or chills. Dr. Lindsey noted that it was slightly red on his visit, but wanted him to watch this in follow-up if any further worsening. Radiation: non-radiation Severity: moderate Relieving factors: none Associated symptoms: denies other symptoms Treatments prior to arrival: none Related Data Home Medications ?Medication ?Instructions ?Recorded ?Confirmed carbidopa 25 mg-levodopa 100 mg 2 tab PO TID 01/25/25 03/20/25 tablet Previous Rx's ?Medication ?Instructions ?Recorded finasteride 5 mg tablet 5 mg PO QDAY #90 tabs 01/25/25 Allergies Allergy/AdvReac Type Severity Reaction Status Date / Time No Known Drug Allergies Allergy Verified 03/15/25 13:40 Review of Systems Status of ROS: Reports: 6 or more systems reviewed and unremarkable except as noted in History and below PFSH PFS Medical History Hx of osteomyelitis ?Z87.39 - Personal history of other diseases of the musculoskeletal system and connective tissue (ICD-10) Osteomyelitis ?M86.9 - Osteomyelitis, unspecified (ICD-10) Discitis of lumbosacral region ?M46.47 - Discitis, unspecified, lumbosacral region (ICD-10) [place] of toe ?L84 - Corns and callosities (ICD-10) Surgical History History of arthroscopy of right shoulder (02/04/25) ?Z98.890 - Other specified postprocedural states (ICD-10) Status post lumbar spinal fusion ?Z98.1 - Arthrodesis status (ICD-10) Social History Narrative: -Basilia Smoking Status: Never smoker Do you use any of these nicotine containing products: None Second hand tobacco smoke exposure: No How often do you have a drink containing alcohol: never AUDIT-C Alcohol total score: 0 Non-prescribed substance use: denies use Caffeine: No Are you now , , , , never or living with a partner: Social isolation score (0-1 are the most socially isolated patients): 1 Exam Narrative: Exam Narrative: On examination he definitely has swelling of the right scar from his rotator cuff surgery in there appears to be some purulence underneath. It is bulging also. He has no pain with internal external rotation, and limited flexion and abduction not reproduce any discomfort. Pulses are normal, redness extends around for approximately 6 in or so. 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 Const: Vital Signs, click to edit/add: Vital Signs - 24 hr 03/20/25 09:51 Temperature 98 F Pulse Rate [Pulse Oximeter] 80 Respiratory Rate 18 Blood Pressure [Ri ght Upper Arm] 107/73 Pulse Oximetry 97 Oxygen Delivery Me thod Room Air Documenting provider has reviewed patient's vital signs: yes Course Reevaluation(s) Time of Reevaluation #1: 12:19 Reevaluation #1: Patient has remained stable he did agree to take some Dilaudid for pain, x-ray returned showing evidence of maybe some joint space widening of, with possible evidence of osteomyelitis. White count normal, I did speak to Ortho, he has plan to go to the operating room for a washout at 5:00 p.m. today. They would prefer to 8 times the get to give antibiotics intraoperatively. Given his nonseptic nature we will hold off on this. Vital Signs Vital signs: Initial Vital Signs Temperature 98 F 03/20/25 09:51 Temperature Source Temporal Artery Scan 03/20/25 09:51 Pulse Rate 80 03/20/25 09:51 Respiratory Rate 18 03/20/25 09:51 Blood Pressure 107/73 03/20/25 09:51 Blood Pressure Mean 84 03/20/25 09:51 Blood Pressure Position Sitting 03/20/25 09:51 Pulse Oximetry 97 03/20/25 09:51 Oxygen Delivery Method Room Air 03/20/25 09:51 Vital Signs Temperature 98 F 03/20/25 09:51 Pulse Rate 80 03/20/25 09:51 Respiratory Rate 18 03/20/25 09:51 Blood Pressure 107/73 03/20/25 09:51 Pulse Oximetry 97 03/20/25 09:51 Oxygen Delivery Method Room Air 03/20/25 09:51 Temperature 98 F 03/20/25 09:51 Pulse Rate 80 03/20/25 09:51 Respiratory Rate 18 03/20/25 09:51 Blood Pressure 107/73 03/20/25 09:51 Pulse Oximetry 97 03/20/25 09:51 Oxygen Delivery Method Room Air 03/20/25 09:51 Medications Administered Medications: Discontinued Medications Generic Name Dose Route Start Last Admin Trade Name Freq PRN Reason Stop Dose Admin Hydromorphone HCl 0.5 mg 03/20/25 11:35 03/20/25 11:41 Hydromorphone 0.5 Mg/0.5 Ml Inj IVP 03/20/25 11:36 0.5 mg ONCE ONE Administration Sodium Chloride 1,000 mls @ 1,000 mls/hr 03/20/25 10:15 03/20/25 11:22 0.9 % Sodium Chloride 1000 Ml IV 03/20/25 11:14 1,000 mls/hr .Q1H PARAMJIT Administration Medical Decision Making MDM Narrative Medical decision making narrative: With patient's agreement, is able to take a picture of this I will send to the orthopedic surgeon we will get some labs, IV. More consistent with a wound infection versus stitch abscess. He does have that history of osteomyelitis in the past. Medical Records Medical records reviewed: Yes I reviewed the patient's medical records Lab Data Labs: Lab Results 03/20/25 Range/Units 10:55 WBC 10.22 (4.50-11.00) K/uL RBC 3.56 L (4.30-5.90) m/uL Hgb 11.2 L (13.5-17.5) gm/dL Hct 33.7 L (37.0-53.0) % MCV 95 (80-100) fL MCH 32 (26-34) pg MCHC 33 (32-36) gm/dL RDW Coeff of Dougie 12.2 (11.5-15.5) % Plt Count 450 H (140-440) K/uL Neut % (Auto) 81.2 H (42.0-72.0) % Lymph % (Auto) 8.3 L (20-44) % [place] % (Auto) 9.4 (0.0-11.0) % Eos % (Auto) 0.7 (0.0-7.0) % Baso % (Auto) 0.1 (0.0-3.0) % Neut # (Auto) 8.30 H (1.7-7.0) K/uL Lymph # (Auto) 0.80 L (0.90-2.90) K/uL [place] # (Auto) 1.00 H (0.00-0.90) K/UL Eos # (Auto) 0.07 (0.00-0.50) K/uL Baso # (Auto) 0.01 (0.00-0.30) K/uL Abs Immat Gran (auto) 0.03 (0.00-0.30) K/uL Imm/Tot Granulo (auto) 0.3 % INR 1.04 (0.91-1.10) APTT 32 (23-33) Seconds Sodium 138 (135-149) mmol/L Potassium 4.4 (3.6-5.1) mmol/L Chloride 102 (96-114) mmol/L Carbon Dioxide 27 (20-32) mmol/L Anion Gap 9 (7-15) mEq/L BUN 23 (7-30) mg/dL Creatinine 1.3 (0.5-1.5) mg/dL Estimated Creat Clear 52.12 Estimated GFR 59 ml/min Glucose 119 H (60-115) mg/dL Calcium 9.3 (8.4-10.6) mg/dL C-Reactive Protein 7.3 H (0.5-1.0) mg/dL Discharge Plan Discharge Clinical Impression: Postoperative wound infection, History of repair of right rotator cuff, History of osteomyelitis Patient Disposition: Admitted As Observation Condition: Stable Activity Level: Light activity Diet Detail: npo
--- OUTSIDE RECORDS SUMMARY | 2025-03-20 10:58 | XMS_ITS | Clinical Summary ---
Author Organization [facility] Address 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 Role Phone Rosey Gill Unavailable Conditions or Problems Problem Name Problem Code Onset Date Status Entry Date Provider Comment Standard Description Annotate Apneic episode 7747428 (SNOMED CT) 02/02 Active 02/02 Annmarie Peguero PA-C Apnea Parkinson's disease without dyskinesia, without mention of fluctuations 75016650 (SNOMED CT) 08/05 Active 08/05 Arleth Neal Parkinson's disease Fatigue 50886936 (SNOMED CT) 02/03 Active 02/03 Uziel Bautista MD Fatigue Hx of snoring 226322101 (SNOMED CT) 02/03 Active 02/03 Uziel Bautista MD H/O: respiratory disease Parkinsonism 00031190 (SNOMED CT) 02/01 Resolved 02/01 Uziel Bautista MD Parkinsonism Parkinson's disease 01691391 (SNOMED CT) 08/05 Inactive 08/05 Uziel Bautista MD Parkinson's disease Parkinsonism 66472949 (SNOMED CT) 02/01 Removed 02/01 Annmarie Peguero PA-C Parkinsonism Cog wheel rigidity 25187643 (SNOMED CT) 12/21 Active 12/21 Uziel Bautista MD Cogwheel muscle rigidity Bradykinesia 452950207 (SNOMED CT) 12/21 Active 12/21 Uziel Bautista MD Bradykinesia Resting tremor 14718936 (SNOMED CT) 12/21 Active 12/21 Uziel Bautista MD Resting tremor Medications Medication Instructions Start Date Stop Date Generic Name NDC Provider CARBIDOPA-LEVO DOPA 25-100 MG TABS 2 tablet by mouth three times a day ; take it about 1 hr before meals 8 carbidopa-lev odopa [id number] Annmarie WASHBURN-Miroslava CARBIDOPA-LEVO DOPA 25-100 MG TABS Take 2 tablet by mouth three times a day ; take it about 1 hr before meals 8 carbidopa-lev odopa 01750585456 Annmarie WASHBURN-Miroslava CARBIDOPA-LEVO DOPA 25-100 MG TABS 1/2 tablet by mouth as directed half tab 3x per day at 6 am, 1030 am pm, and 4 pm. Increase by half tab every week until 2 tabs 3x per day. 3 carbidopa-lev odopa 87319894373 Uziel Bautista MD CARBIDOPA-LEVO DOPA 25-100 MG TABS 2 tablet by mouth three times a day ; take it about 1 hr before meals 8 carbidopa-lev odopa 68829992227 Uziel Bautista MD TAMSULOSIN HCL 0.4 MG CAPS tamsulosin [id number] Annmarie WASHBURN- CARBIDOPA-LEVO DOPA 25-100 MG TABS 1/2 tablet by mouth as directed half tab 3x per day at 6 am, 1030 am pm, and 4 pm. Increase by half tab every week until 2 tabs 3x per day. 3 carbidopa-lev odopa 60888451077 Uziel Bautista MD Medications Administered No information [...] and results reviewed. Total score [M MSE] [id number] Normal Total scor e [MoCA] MOCA SCORE 28 Total scor e [MMSE] Plan of Care Type Date Detail Appointment 10:00 AM Annmarie Peguero PA-C, [address], [address], [place], [address], Appointment 09:20 [place], [address], [address], [place], [address], Referral Other Referral Pending order Follow up [...] Entry Date ORDERS Follow up LELA LOINC 05253-3 MOCA ORDERS Patient Instructions ORDERS Patient Instructions ORDERS Other Referral ORDERS Follow up LELA ORDERS Follow up ORDERS Work Note LOINC 46604-8 MOCA LOINC 50167-7 MOCA LOINC 30467-1 MOCA [facility]-[id number] Documentation of current medicatio ns SCT-[id number] Documentation of current medicatio ns ORDERS Follow up with Neurologist or LELA SCT-[id number] Documentation of current medicatio ns ORDERS Follow up in clinic or telemedicine 08/05 ORDERS [facility] 20 07/02/17 ORDERS Follow up in clinic or telemedicine 02/01 [id number] MRI-Brain W/O Vital Signs Date Name Value Unit Description Heart Rate 68 /min pulse rate Immunizations No information available. Advance Directives No information available.
[2025-03-20] MEDS: CARBIDOPA-LEVODOPA 25-100 TABLET 2 TAB PO ×3 (11:00→22:03)
[2025-03-20 11:05] LABS: Basophils Absolute Auto 0.01 K/uL (0.00-0.30); Basophils Percent Auto 0.1 % (0.0-3.0); Eosinophils Absolute Auto 0.07 K/uL (0.00-0.50); Eosinophils Percent Auto 0.7 % (0.0-7.0); Hematocrit 33.7 % (37.0-53.0); Hemoglobin* 11.2 gm/dL (13.5-17.5); Immature Granulocytes Abs Auto 0.03 K/uL (0.00-0.30); Immature Granulocytes Pct Auto 0.3 %; Lymphocytes Percent Auto 8.3 % (20-44); Mean Corpuscular HGB Conc 33 gm/dL (32-36); Mean Corpuscular Hemoglobin 32 pg (26-34); Mean Corpuscular Volume 95 fL (80-100); Monocytes Percent Auto 9.4 % (0.0-11.0); Neutrophils Percent Auto 81.2 % (42.0-72.0); Platelet Count* 450 K/uL (140-440); RDW Coefficient of Variation % 12.2 % (11.5-15.5); Red Blood Count 3.56 m/uL (4.30-5.90); White Blood Count* 10.22 K/uL (4.50-11.00)
[2025-03-20 11:15] LABS: Slide Review Reflex No
[2025-03-20] MEDS: 0.9 % SODIUM CHLORIDE 1000 ml 1,000 ML IV (11:22)
[2025-03-20 11:28] LABS: Potassium* 4.4 mmol/L (3.6-5.1); Sodium* 138 mmol/L (135-149)
[2025-03-20 11:29] LABS: Chloride* 102 mmol/L (96-114)
[2025-03-20 11:31] LABS: Anion Gap 9 mEq/L (7-15); Blood Urea Nitrogen* 23 mg/dL (7-30); Calcium* 9.3 mg/dL (8.4-10.6); Carbon Dioxide* 27 mmol/L (20-32); Creatinine* 1.3 mg/dL (0.5-1.5); Est. Creatinine Clearance* 52.12; Estimated Glomerular Filt Rate 59 ml/min; Glucose* 119 mg/dL (60-115)
[2025-03-20 11:34] LABS: C Reactive Protein* 7.3 mg/dL (0.5-1.0)
[2025-03-20] MEDS: HYDROmorphone 0.5 mg/0.5 ml inj IVP ×3 (11:41→20:45)
[2025-03-20 11:48] LABS: Prothrombin Time 14.4 Seconds
[2025-03-20 11:49] LABS: INR 1.04 (0.91-1.10); Partial Thromboplastin Time* 32 Seconds (23-33)
[2025-03-20 12:59] LABS: Procalcitonin* 0.07 ng/mL (<0.50)
[2025-03-20] MEDS: LACTATED RINGERS 1000 ML 1,000 ML 75 ML IV ×3 (17:25→22:03)
--- NOTE | 2025-03-20 17:41 | P.ORHP_ITS ---
History of Present Illness History of Present Illness Date Seen: 03/20/25 Chief complaint: Rotary cuff surgery last month, poss inf. Narrative: Stephen Paz is a 69 year old male. He underwent right shoulder miniopen rotator cuff repair surgery on 02/04/2025. He notes over the last week or so, he has had increasing redness of his right shoulder wound with pain and warmth. He saw Dr. Lindsey in clinic on 03/15/25. According to Dr. Lindsey's note, there was a little bit of pink skin on both the medial and lateral aspect of the incision, no real redness, no tenderness. Plan was to observe the skin changes. If they worsen, I would like to see him [2 days later] on Saturday of this week. The patient did not come in for that visit. However, he notes that the redness, swelling, warmth, and pain have all increased over the last couple days. Now, it appears like a large pimple. It clearly looks infected to him. He presented [place] ED today. Clinical suspicion for infection was present. Orthopedics was notified. Upon our evaluation indeed he had a pustule about this anterior mini open rotator cuff repair incision to the right shoulder. He has no systemic signs or symptoms Quality: Safe Use of Opioids Is the patient undergoing opioid medication assisted treatment that includes methadone, buprenorphine, and/or naltrexone: No Review of Systems Narrative: No fevers or chills. No numbness or tingling. Pain about the right anterior shoulder region. Pain with shoulder range of motion today. No shortness of breath. No chest pain. [facility] Medical History Hx of osteomyelitis ?Z87.39 - Personal history of other diseases of the musculoskeletal system and connective tissue (ICD-10) Osteomyelitis ?M86.9 - Osteomyelitis, unspecified (ICD-10) Discitis of lumbosacral region ?M46.47 - Discitis, unspecified, lumbosacral region (ICD-10) [place] of toe ?L84 - Corns and callosities (ICD-10) Surgical History History of arthroscopy of right shoulder (02/04/25) ?Z98.890 - Other specified postprocedural states (ICD-10) Status post lumbar spinal fusion ?Z98.1 - Arthrodesis status (ICD-10) Social History Narrative: -Basilia Smoking Status: Never smoker Do you use any of these nicotine containing products: None Second hand tobacco smoke exposure: No How often do you have a drink containing alcohol: never AUDIT-C Alcohol total score: 0 Non-prescribed substance use: denies use Caffeine: No Are you now , , , , never or living with a partner: Social isolation score (0-1 are the most socially isolated patients): 1 Meds Home Medications and Allergies Home Medications ?Medication ?Instructions ?Recorded ?Confirmed ?Type carbidopa 25 mg-levodopa 100 mg 2 tab PO TIDWMEAL 01/25/25 03/20/25 History tablet Allergies Allergy/AdvReac Type Severity Reaction Status Date / Time No Known Drug Allergies Allergy Verified 03/15/25 13:40 Ortho Exam Narrative Exam Narrative: The patient is alert and ordered x3. He is lying supine on hospital bed. He is by himself and provides all the history today. The right shoulder exam shows an obvious pustule that is now approximately 2 cm in diameter overlying the anterior skin incision for the previous rotator cuff mini open repair. There is surrounding erythema expanding approximately 4 cm in diameter. Neurologic intact right upper extremity in the radial, ulnar, median nerve, and axillary nerve distributions to sensory light touch and motor function. Shoulder pain is present with any shoulder elevation. 2+ radial pulse. He is in no acute distress. Nonlabored breathing. Difficult to assess rotator cuff strength as he has pain that limits him. Const Vital Signs, click to edit/add: Vital Signs - 24 hr 03/20/25 09:51 03/20/25 11:29 03/20/25 11:30 Temperature 98 F Pulse Rate 74 73 Pulse Rate [Pulse Oximeter] 80 Respiratory Rate 18 Blood Pressure Blood Pressure [Right Upper Arm] 107/73 Pulse Oximetry 97 97 97 Oxygen Delivery Method Room Air 03/20/25 11:32 03/20/25 11:45 03/20/25 12:00 Temperature Pulse Rate 73 75 72 Pulse Rate [Pulse Oximeter] Respiratory Rate 16 Blood Pressure 131/79 Blood Pressure [Right Upper Arm] Pulse Oximetry 97 97 96 Oxygen Delivery Method Room Air 03/20/25 12:01 03/20/25 12:15 03/20/25 12:30 Temperature Pulse Rate 74 71 69 Pulse Rate [Pulse Oximeter] Respiratory Rate 16 Blood Pressure 134/80 Blood Pressure [Right Upper Arm] Pulse Oximetry 96 97 97 Oxygen Delivery Method Room Air 03/20/25 12:32 03/20/25 12:45 03/20/25 13:00 Temperature Pulse Rate 70 72 72 Pulse Rate [Pulse Oximeter] Respiratory Rate 16 Blood Pressure 132/80 Blood Pressure [Right Upper Arm] Pulse Oximetry 96 97 98 Oxygen Delivery Method 03/20/25 13:15 03/20/25 13:30 03/20/25 13:45 Temperature Pulse Rate 73 72 67 Pulse Rate [Pulse Oximeter] Respiratory Rate Blood Pressure Blood Pressure [Right Upper Arm] Pulse Oximetry 97 96 95 Oxygen Delivery Method 03/20/25 14:00 03/20/25 14:15 03/20/25 14:30 Temperature Pulse Rate 66 66 65 Pulse Rate [Pulse Oximeter] Respiratory Rate Blood Pressure Blood Pressure [Right Upper Arm] Pulse Oximetry 95 93 94 Oxygen Delivery Method 03/20/25 14:45 03/20/25 15:00 03/20/25 15:15 Temperature Pulse Rate 67 64 64 Pulse Rate [Pulse Oximeter] Respiratory Rate Blood Pressure Blood Pressure [Right Upper Arm] Pulse Oximetry 95 95 96 Oxygen Delivery Method 03/20/25 15:30 03/20/25 15:45 03/20/25 15:47 Temperature Pulse Rate 65 67 71 Pulse Rate [Pulse Oximeter] Respiratory Rate 16 Blood Pressure 143/86 H Blood Pressure [Right Upper Arm] Pulse Oximetry 96 97 97 Oxygen Delivery Method Room Air 03/20/25 16:04 03/20/25 16:15 03/20/25 16:30 Temperature Pulse Rate 76 71 71 Pulse Rate [Pulse Oximeter] Respiratory Rate Blood Pressure Blood Pressure [Right Upper Arm] Pulse Oximetry 97 96 96 Oxygen Delivery Method Results Labs Labs: Laboratory Results - last 48 hr 03/20/25 10:55 WBC 10.22 RBC 3.56 L Hgb 11.2 L Hct 33.7 L MCV 95 MCH 32 MCHC 33 RDW Coeff of Dougie 12.2 Plt Count 450 H Neut % (Auto) 81.2 H Lymph % (Auto) 8.3 L [place] % (Auto) 9.4 Eos % (Auto) 0.7 Baso % (Auto) 0.1 Neut # (Auto) 8.30 H Lymph # (Auto) 0.80 L [place] # (Auto) 1.00 H Eos # (Auto) 0.07 Baso # (Auto) 0.01 Abs Immat Gran (auto) 0.03 Imm/Tot Granulo (auto) 0.3 INR 1.04 APTT 32 Sodium 138 Potassium 4.4 Chloride 102 Carbon Dioxide 27 Anion Gap 9 BUN 23 Creatinine 1.3 Estimated Creat Clear 52.12 Estimated GFR 59 Glucose 119 H Calcium 9.3 C-Reactive Protein 7.3 H Procalcitonin 0.07 Diagnostic results Additional Comments: Three views of the right shoulder from [facility] dated 03/20/2025 were ordered by different provider and reviewed by me. This demonstrates new ill- defined lucency and cortical irregularity about the greater tuberosity of the humerus, concerning for osteomyelitis per the radiologist. Otherwise, no acute fractures avulsions. No signs of AVN. Assessment and Plan Assessment and plan (1) Postoperative wound infection: Status: Acute (2) History of repair of right rotator cuff: Status: Acute (3) History of osteomyelitis: Status: Acute (4) Parkinson's disease: Problem comment: Left hand resting tremor noted 06/2022 Status: Acute Plan Had a good discussion today with Stephen. His situation has worsened. He has a postop infection that appears to be both superficial and deep. There is concern for osteomyelitis on the radiographs. I helped him understand the current situation. The rotator cuff repair surgery was done approximately 5 -6 weeks ago. Now, there is concern for superficial and deep infection to this right shoulder after rotator cuff repair. So early after the repair makes the integrity of the surgery questionable. However, we will look more intraoperatively. In my opinion, I do think surgery is indicated. This be for an arthroscopic and possible open incision and drainage to the right shoulder. We discussed the risks, benefits, and alternatives which includes both local risks (e.g. Persistent infection, need for recurrent surgery, neural injury) and systemic risks (e.g. CT, VTE, stroke). He states understanding. Indeed he would like to proceed with surgery. Following the surgery, I would anticipate the patient would benefit from admission to the hospital for IV antibiotics until cultures can return with sensitivities. Thereafter, he may need a PICC line plus or minus prolonged IV antibiotics or transition oral antibiotics. A consultation with Infectious Disease will likely be beneficial. In addition, given his parkinsonism, hospitalist consultation will be of great value as I will appreciate their help managing the patient's medical comorbidities. After today surgery, I would anticipate the patient will be in a sling. Pendulums, elbow, wrist, and finger range of motion wall be encouraged. We will initiate empiric antibiotics through the IV. He will be encouraged to get up and move about and walk to minimize stasis. Analgesics will be provided as needed.
--- NOTE | 2025-03-20 17:51 | PC.NURSE ---
Gregorio, SUBASSEMBLER requested pt get his dose of carbidopa-levodopa 25mg-100mg, two tabs, prior to procedure. Medication given to Gregorio in OR2 to administer to pt.
--- NOTE | 2025-03-20 18:25 | ED.NURSE ---
Report given to MS RN. Pt in OR now. Pt did go home for the night, would drive back yet if Pt were discharged. Pt was ambulating independently to the bathroom during time spent in ER.
--- NOTE | 2025-03-20 18:43 | PM.ORPRC ---
Procedure Note Date of procedure: 03/20/25 Procedure: PREOPERATIVE DIAGNOSES: 1. Right shoulder superficial and deep infection (following mini open rotator cuff repair and arthroscopic SAD, DCE, LGHD from 02/04/2025) POSTOPERATIVE DIAGNOSES: 1. Right shoulder superficial infection (following mini open rotator cuff repair and arthroscopic SAD, DCE, LGHD from 02/04/2025) 2. Right shoulder labral tearing 3. Right shoulder stiffness following previous surgical repair from 02/04/2025 NAME OF OPERATION: 1. Right shoulder arthroscopic incision, drainage, and lavage and limited glenohumeral debridement. 2. Right shoulder open incision, drainage, and lavage 3. Manipulation under anesthesia right shoulder SURGEON: Gilbert Jorgensen MD STORE MGR: Josef Valderrama PA-C. Of note, a skilled preschool assistant principal was necessary for this case to aide in patient positioning, suture manipulation, arm positioning, instrument positioning, and closure. ANESTHESIA: General endotracheal anesthetic EBL: 25 mL IMPLANTS: None SPECIMENS: Right shoulder deep glenohumeral joint (x1); right shoulder superficial anterior incision (x1) COMPLICATIONS: None evident INDICATIONS: The patient is a pleasant, 69-year-old male who 1 went right shoulder arthroscopic SAD, DCE, LGHD on 02/04/2025. In the last 1 week he has noted increasing pain, redness, swelling, warmth, and dysfunction about the right shoulder. He was seen in clinic on 03/15/2025. At the time it was felt to be minimally clinically significant. Thus, decision was made to watch the wound. Unfortunately, the last 1 week things have worsened for the patient. He called in this morning at approximately 8:30 a.m. in the morning and noted that he had increasing symptoms. Given the patient's description of a pustule about the right shoulder incision, it was recommended that he come to the emergency department. There, he was evaluated and found indeed to have high suspicion of infection. Orthopedics was notified. Upon our evaluation, indeed it was felt that surgical debridement would be prudent. X-rays were obtained in had some concern for osteomyelitis. There was a recommendation for consideration of an MRI. We will likely obtain this in the postoperative time. It was felt prudent to taken the operating room to debride the wound. Arthroscopic lavage was performed of the glenohumeral joint. This does distinctly separate from the open incision and drainage of the anterior wound which appeared indeed be infected but contained within the subcutaneous layer as it did not penetrate the deltoid fascia or muscular layer. FINDINGS: Exam under anesthesia revealed stable shoulder passive elevation to approximately 110?. When the surgery was complete, a gentle manipulation under anesthesia was performed improving the elevation to 160? passively. External rotation with the shoulder abducted improved from 45? to 85?. The diagnostic arthroscopy revealed relatively healthy articular cartilage. There was significant debris within the shoulder joint proper which appeared to primarily be labral tearing but may have been some scar tissue as well. The Subscapularis tendon was not is distinctly evident. A suture was seen suspicious of previous repair in the anterior shoulder, but again the subscapularis tendon was not clearly visible or distinct from the surrounding rotator interval thickened tissue. Any tissue that was debrided with the torpedo shaver was very friable. From the shoulder joint, the supraspinatus appeared to still have excellent reapproximation to the greater tuberosity at the articular margin. From the subacromial space there was a small rotator cuff tear seen more central laterally to slightly anterolaterally. However, again there is no appreciable purulence within the shoulder joint nor in the subacromial space. Separate from this, there was purulence clearly evident in the subcutaneous space but superficial to the deltoid muscle and fascia from this anterior incision site. The arthroscopy portals were distinctly separate from this space to try to a avoid cross contamination. The long head of the biceps tendon was absent. PROCEDURE: Following a thorough discussion of risks, benefits, and alternatives, consent was obtained and the right shoulder was marked. The patient was brought to the operating room and placed supine on the operating table. Induction of anesthesia was completed after preoperative supraclavicular block was administered in preop holding. Appropriate time out was performed identifying proper patient, site, and procedure. 2 g IV Ancef was administered after cultures were obtained to avoid false negatives. The right upper extremity was prepped and draped in the appropriate sterile fashion using ChloraPrep prep. This was after the patient was positioned in the beach chair with their head in neutral alignment and all bony prominences well padded. An 11 blade skin incision allowed a blunt trochar to be inserted and diagnostic arthroscopy to be performed with the findings as noted above. Fluid was immediately obtained from the joint and was collected for deep glenohumeral culture. An anterior portal was established with an outside-in technique. After culturing and diagnostic arthroscopy was performed, the shaver was then inserted and allowed debridement of anterior and superior labrum as well as rotator interval tissue. Following this, the upper border subscapularis was probed and felt to be intact but somewhat friable and its quality. Following the glenohumeral joint debridement, we then opened the anterior incision where the pustule was clearly evident preoperatively. Immediate purulence was encountered. This was also cultured (culture 2) of the superficial anterior right shoulder. Finally, thorough irrigation normal saline of this portal/incision was performed with curetting in between and Ray-Karlo debridement. Blunt probing with a curette showed no penetration through the deltoid fascia or deltoid muscle. There was no connection between the pustule anterior incision site with the anterior portal nor the lateral portal nor the glenohumeral joint/posterior portal. Instead, this appeared to be contained within this subcutaneous space. Thereafter, the subacromial space was entered with the scope. Significant bursitis was encountered. No kristal purulence was encountered. The lateral previous portal was reopened and the shaver inserted. Again no fluid seem to connect with the anterior pustule wound that previously was debrided. Bursectomy was performed and further inspection of the rotator cuff showed small (sub cm) tearing with less than healthy rotator cuff tissue relatively direct lateral/anterolateral of the supraspinatus. There was 1 suture that showed it did not have tension any further at this time. However, the other sutures appeared to have some tension still and probing seem to show the remaining rotator cuff was otherwise intact. After thorough debridement of the subacromial space, fluid which entered the subacromial space again exited the portals for the glenohumeral joint or the subacromial space but did not exit out the main pustule incision. After thorough debridement, irrigation both arthroscopically and open, I manipulation under anesthesia was performed as noted above. Thereafter, instruments were removed. Excess fluid was drained, closure performed with 3-0 nylon. Dressings were applied. Sling was applied. The patient was awoken from anesthesia and transferred to the PACU in stable condition. A skilled preschool assistant principal was critical for this case to aid in patient positioning, limb positioning, skill to manipulate arthroscopic instruments and camera, suture management, patient safety, and closure. PLAN: 1. Elbow, forearm, wrist and digit range of motion as tolerated. 2. Encouraged ice. 3. Oxycodone for pain as needed. 4. Sling at all times except for ROM and showering. 5. Follow up with PA visit in 1-2 weeks for wound check and suture removal. Initiate physical therapy following that visit for passive range of motion. Initiate active assisted range of motion at 6 weeks. May do pendulums now.
[2025-03-20] MEDS: CEFAZOLIN 2 GM INJ IVP (18:46)
[2025-03-20] MEDS: fentaNYL 100 MCG/2 ML inj 50 MCG IVP ×2 (19:22→19:27)
--- NOTE | 2025-03-20 19:24 | P.ANES_ITS ---
Anesthesia Charges Start Date/Time Anesthesia Start Date: 03/20/25 Anesthesia Start Time: 17:25 Stop Date/Time Anesthesia Stop Date: 03/20/25 Anesthesia Stop Time: 19:06 Summary Extremes of Age - Over 70 or under 1: PATIENT REGISTRATION MANAGER Coding CPT Codes CPT Codes: ANESTH SURGERY OF SHOULDER - 24546 ([id number]) P3 - PATIENT W/SEVERE SYS DISEASE, QZ - PATIENT REGISTRATION MANAGER SVC W/O HOME SERVICE ADVISOR BY Additional Codes: Summary - Extremes of Age - Over 70 or under 1: PATIENT REGISTRATION MANAGER ([id number])
--- NOTE | 2025-03-20 19:24 | W.ANESCHARGE ---
Anesthesia Charges Start Date/Time Anesthesia Start Date: 03/20/25 Anesthesia Start Time: 17:25 Stop Date/Time Anesthesia Stop Date: 03/20/25 Anesthesia Stop Time: 19:06 Summary Extremes of Age - Over 70 or under 1: CRATE OPENER Coding CPT Codes CPT Codes: ANESTH SURGERY OF SHOULDER - 32164 ([id number]) P3 - PATIENT W/SEVERE SYS DISEASE, QZ - CRATE OPENER SVC W/O GLASS OR MIRROR INSPECTOR BY Additional Codes: Summary - Extremes of Age - Over 70 or under 1: CRATE OPENER ([id number])
--- NOTE | 2025-03-20 21:04 | SUR.PHASEI ---
patient met discharge criteria per anesthesia
[2025-03-20] MEDS: ACETAMINOPHEN 500 MG TABLET 1000 MG PO (22:27)
[2025-03-20] MEDS: VANCOMYCIN 1.25 GM/250 ML 1.25 GM/250 ML PIGGYBACK IVPB (22:27)
[2025-03-20] MEDS: SENNOSIDES 1 TAB TABLET 2 TAB PO (22:27)
[2025-03-20] MEDS: OXYCODONE 5 MG TABLET PO (22:27)
[2025-03-21] VITALS (10 sets, daily range): BP systolic 124–163; BP diastolic 78–99; PULSE 67–83; RESP 16–18; TEMP 36.4–36.7; O2SAT 92–100
[2025-03-21] MEDS: OXYCODONE 5 MG TABLET PO (01:38)
[2025-03-21] MEDS: ACETAMINOPHEN 500 MG TABLET 1000 MG PO ×4 (04:59→23:41)
[2025-03-21] MEDS: CARBIDOPA-LEVODOPA 25-100 TABLET 2 TAB PO ×3 (04:59→18:25)
--- NOTE | 2025-03-21 06:12 | PC.NURSE ---
Pt arrived to the floor at 2100, alert oriented and vitally stable. Pain rated 4/10 throughout shift with a few more achy pains rated around 5, prn oxy given, pt states improvement. Right shoulder dressing C/D/I. Ice pack to op site. Denies nausea. Up via SBA, tolerates well. Pt in bed, appears to be resting, call light within reach.
[2025-03-21] MEDS: FINASTERIDE 5 MG TABLET PO (09:26)
[2025-03-21] MEDS: SENNOSIDES 1 TAB TABLET 2 TAB PO ×2 (09:26→22:05)
--- NOTE | 2025-03-21 11:22 | P.ORPN_ITS ---
Subjective Subjective Date Seen: 03/21/25 Principal diagnosis: Right shoulder superficial infection approximately 6 weeks post RCR Interval history: Today, the patient denies fevers or chills. His pain is much improved from yesterday. No specific concerns today but the nursing staff. OT did work with the patient this morning. Ortho Exam Narrative Exam Narrative: Patient is alert and oriented x3. Resting comfortably supine in a hospital bed. Able to sit at the bedside. Right shoulder dressings are intact without saturation. Neurologic intact distally in the radial, ulnar, median, and axillary nerve distribution to sensory light touch and motor function. 2+ radial pulse. Const Vital Signs, click to edit/add: Vital Signs - 24 hr 03/20/25 11:29 03/20/25 11:30 03/20/25 11:32 Temperature Pulse Rate 74 73 73 Pulse Rate [Right Pulse Oximeter] Respiratory Rate 16 Blood Pressure 131/79 Blood Pressure [Left Arm] Pulse Oximetry 97 97 97 Oxygen Delivery Method Room Air 03/20/25 11:45 03/20/25 12:00 03/20/25 12:01 Temperature Pulse Rate 75 72 74 Pulse Rate [Right Pulse Oximeter] Respiratory Rate 16 Blood Pressure 134/80 Blood Pressure [Left Arm] Pulse Oximetry 97 96 96 Oxygen Delivery Method Room Air 03/20/25 12:15 03/20/25 12:30 03/20/25 12:32 Temperature Pulse Rate 71 69 70 Pulse Rate [Right Pulse Oximeter] Respiratory Rate 16 Blood Pressure 132/80 Blood Pressure [Left Arm] Pulse Oximetry 97 97 96 Oxygen Delivery Method 03/20/25 12:45 03/20/25 13:00 03/20/25 13:15 Temperature Pulse Rate 72 72 73 Pulse Rate [Right Pulse Oximeter] Respiratory Rate Blood Pressure Blood Pressure [Left Arm] Pulse Oximetry 97 98 97 Oxygen Delivery Method 03/20/25 13:30 03/20/25 13:45 03/20/25 14:00 Temperature Pulse Rate 72 67 66 Pulse Rate [Right Pulse Oximeter] Respiratory Rate Blood Pressure Blood Pressure [Left Arm] Pulse Oximetry 96 95 95 Oxygen Delivery Method 03/20/25 14:15 03/20/25 14:30 03/20/25 14:45 Temperature Pulse Rate 66 65 67 Pulse Rate [Right Pulse Oximeter] Respiratory Rate Blood Pressure Blood Pressure [Left Arm] Pulse Oximetry 93 94 95 Oxygen Delivery Method 03/20/25 15:00 03/20/25 15:15 03/20/25 15:30 Temperature Pulse Rate 64 64 65 Pulse Rate [Right Pulse Oximeter] Respiratory Rate Blood Pressure Blood Pressure [Left Arm] Pulse Oximetry 95 96 96 Oxygen Delivery Method 03/20/25 15:45 03/20/25 15:47 03/20/25 16:04 Temperature Pulse Rate 67 71 76 Pulse Rate [Right Pulse Oximeter] Respiratory Rate 16 Blood Pressure 143/86 H Blood Pressure [Left Arm] Pulse Oximetry 97 97 97 Oxygen Delivery Method Room Air 03/20/25 16:15 03/20/25 16:30 03/20/25 19:01 Temperature 97.7 F Pulse Rate 71 71 78 Pulse Rate [Right Pulse Oximeter] Respiratory Rate 14 Blood Pressure 154/86 H Blood Pressure [Left Arm] Pulse Oximetry 96 96 95 Oxygen Delivery Method Room Air 03/20/25 19:05 03/20/25 19:10 03/20/25 19:15 Temperature 97.7 F 97.7 F 97.7 F Pulse Rate 76 75 73 Pulse Rate [Right Pulse Oximeter] Respiratory Rate 12 12 12 Blood Pressure 143/81 H 152/87 H 152/84 H Blood Pressure [Left Arm] Pulse Oximetry 93 95 93 Oxygen Delivery Method Room Air Room Air Room Air 03/20/25 19:20 03/20/25 19:25 03/20/25 19:30 Temperature 97.7 F 97.7 F 97.7 F Pulse Rate 74 74 75 Pulse Rate [Right Pulse Oximeter] Respiratory Rate 19 12 14 Blood Pressure 155/97 H 154/91 H 151/88 H Blood Pressure [Left Arm] Pulse Oximetry 94 93 92 Oxygen Delivery Method Room Air Room Air Room Air 03/20/25 19:35 03/20/25 19:40 03/20/25 19:45 Temperature 97.7 F 97.7 F 97.7 F Pulse Rate 75 77 77 Pulse Rate [Right Pulse Oximeter] Respiratory Rate 13 15 13 Blood Pressure 173/97 H 168/95 H 153/90 H Blood Pressure [Left Arm] Pulse Oximetry 94 94 95 Oxygen Delivery Method Room Air Room Air Room Air 03/20/25 19:50 03/20/25 19:55 03/20/25 20:00 Temperature 97.7 F 97.7 F 97.4 F L Pulse Rate 78 77 77 Pulse Rate [Right Pulse Oximeter] Respiratory Rate 12 11 L 14 Blood Pressure 155/87 H 144/82 H 169/92 H Blood Pressure [Left Arm] Pulse Oximetry 96 98 94 Oxygen Delivery Method Room Air Room Air Room Air 03/20/25 20:05 03/20/25 20:10 03/20/25 20:15 Temperature 97.4 F L 97.4 F L 97.4 F L Pulse Rate 79 75 75 Pulse Rate [Right Pulse Oximeter] Respiratory Rate 15 12 12 Blood Pressure 146/104 H 151/88 H 151/86 H Blood Pressure [Left Arm] Pulse Oximetry 95 94 95 Oxygen Delivery Method Room Air Room Air Room Air 03/20/25 20:20 03/20/25 20:40 03/20/25 20:45 Temperature 97.4 F L 97.4 F L 97.4 F L Pulse Rate 78 78 80 Pulse Rate [Right Pulse Oximeter] Respiratory Rate 12 14 12 Blood Pressure 148/90 H 145/88 H 152/91 H Blood Pressure [Left Arm] Pulse Oximetry 94 93 93 Oxygen Delivery Method Room Air Room Air Room Air 03/20/25 20:50 03/20/25 21:00 03/20/25 21:00 Temperature 97.4 F L 97.1 F L Pulse Rate 79 77 Pulse Rate [Right Pulse Oximeter] Respiratory Rate 12 12 Blood Pressure 150/85 H 147/87 H Blood Pressure [Left Arm] Pulse Oximetry 92 95 Oxygen Delivery Method Room Air Room Air Room Air 03/20/25 21:15 03/20/25 21:30 03/20/25 21:34 Temperature 97.2 F L 97.0 F L 97.4 F L Pulse Rate 77 85 Pulse Rate [Right Pulse Oximeter] Respiratory Rate 14 16 18 Blood Pressure 154/93 H 156/90 H Blood Pressure [Left Arm] Pulse Oximetry 94 97 96 Oxygen Delivery Method Room Air Room Air Room Air 03/20/25 21:45 03/20/25 22:00 03/20/25 22:30 Temperature 97.6 F 97.4 F L 97.4 F L Pulse Rate 75 81 79 Pulse Rate [Right Pulse Oximeter] Respiratory Rate 16 18 18 Blood Pressure 131/93 H 137/82 138/84 Blood Pressure [Left Arm] Pulse Oximetry 95 96 97 Oxygen Delivery Method Room Air Room Air 03/20/25 23:00 03/20/25 23:00 03/20/25 23:00 Temperature 97.4 F L Pulse Rate 72 Pulse Rate [Right Pulse Oximeter] Respiratory Rate 16 16 Blood Pressure 148/89 H Blood Pressure [Left Arm] Pulse Oximetry 97 97 97 Oxygen Delivery Method Room Air 03/20/25 23:00 03/21/25 00:00 03/21/25 01:00 Temperature Pulse Rate 69 70 Pulse Rate [Right Pulse Oximeter] 70 Respiratory Rate 16 18 16 Blood Pressure 152/89 H 163/94 H Blood Pressure [Left Arm] Pulse Oximetry 95 97 Oxygen Delivery Method 03/21/25 02:00 03/21/25 02:29 03/21/25 02:31 Temperature 98.0 F 98.0 F Pulse Rate 71 83 Pulse Rate [Right Pulse Oximeter] Respiratory Rate 16 16 Blood Pressure 149/85 H 158/99 H Blood Pressure [Left Arm] Pulse Oximetry 92 97 97 Oxygen Delivery Method Room Air Room Air 03/21/25 07:41 03/21/25 07:41 03/21/25 07:41 Temperature 97.9 F Pulse Rate Pulse Rate [Right Pulse Oximeter] 68 68 Respiratory Rate 16 16 16 Blood Pressure Blood Pressure [Left Arm] 135/82 Pulse Oximetry 98 98 Oxygen Delivery Method Room Air Room Air Assessment and Plan Assessment and plan (1) Postoperative wound infection: Status: Acute (2) History of repair of right rotator cuff: Status: Acute (3) History of osteomyelitis: Status: Acute (4) Parkinson's disease: Problem details: Left hand resting tremor noted 06/2022 Status: Acute Plan 1&2 - regarding the postoperative infection, we are waiting for culture sensitivities. This will help guide the antibiotic choice. 3 - with a history of osteomyelitis of his lumbar spine approximately [id number], there is also concern for osteomyelitis of this right proximal humerus. To better understand that, an MRI with and without IV contrast has been ordered. Ideally this would be done today, but it may not be possible until tomorrow. We will rate the results prior to discharge. If there is concern for osteomyelitis, then he may need long-term IV antibiotics. Again Infectious Disease consult may be necessary accordingly. 4 - for the Parkinson's disease, he will continue his Sinemet medication. Hospitalist consultation and input is appreciated. Again anticipate discharge after MRI reveals whether osteomyelitis is present to give us a better understanding of need for long-term IV antibiotics, as well as when sensitivities are back from the cultures that were obtained intraoperat ively. Hopefully this will all occur tomorrow. He will need sutures removed in approximately 10-12 days. Total Time Spent Total time spent: 20
--- NOTE | 2025-03-21 19:52 | PC.NURSE ---
Nursing Care Hours: [id number] Pt this shift calm and cooperative, alert and oriented. VSS. Afebrile. Pain controlled this shift on scheduled acetaminophen. Ice being used intermittently. CMS intact. Independent in room.
[2025-03-21] MEDS: VANCOMYCIN 1.5 GM/300 ML 1.5 GM/300 ML PIGGYBACK IVPB (22:05)
[2025-03-22 03:00] VITALS: RESP 16
[2025-03-22] MEDS: CARBIDOPA-LEVODOPA 25-100 TABLET 2 TAB PO ×2 (04:48→11:17)
--- NOTE | 2025-03-22 04:53 | PC.NURSE ---
Pt alert, oriented and vitally stable. Pain rated 2-4/10 throughout sift, tolerated with scheduled medication. Pt up independently, tolerated well. Right arm immobilized, pt using proper exercises. Pt in bed, appears to be resting, call light within reach.
[2025-03-22] MEDS: ACETAMINOPHEN 500 MG TABLET 1000 MG PO ×2 (06:14→11:19)
[2025-03-22 07:00] VITALS: BP 128/89; PULSE 79; PULSE 80; RESP 16; TEMP 36.4; O2SAT 99
[2025-03-22] MEDS: FINASTERIDE 5 MG TABLET PO (08:35)
[2025-03-22] MEDS: SENNOSIDES 1 TAB TABLET 2 TAB PO (08:35)
[2025-03-22] MEDS: OXYCODONE 5 MG TABLET PO (08:35)
--- NOTE | 2025-03-22 09:40 | PM.ORPN ---
Subjective Subjective Time Seen by Provider: 07:10 Date Seen: 03/22/25 Principal diagnosis: Right shoulder superficial infection approximately 6 weeks post RCR Interval history: Stephen is 2 days post right shoulder I&D. He states he is comfortable. Plan is for an MRI today to rule out osteomyelitis right shoulder. Ortho Exam Narrative Exam Narrative: Alert and oriented x3. Patient is in no acute distress. Converses without labored breathing. Hearing is grossly intact. Ambulates with a normal gait. Examination of the right shoulder shows bulky dressing is removed. Nylon sutures are in place. No current drainage from the wounds. Mild erythema about the edges of the main incision. Edema about the right hand without erythema of the hand. CMS intact right upper extremity. Mild swelling about the shoulder. No fever. Const Vital Signs, click to edit/add: Vital Signs - 24 hr 03/21/25 11:00 03/21/25 15:00 03/21/25 15:00 Temperature Pulse Rate [Right Pulse Oximeter] 74 67 Respiratory Rate 16 16 16 Blood Pressure [Left Arm] 125/78 Pulse Oximetry 100 97 Oxygen Delivery Method Room Air Room Air 03/21/25 15:00 03/21/25 19:00 03/21/25 23:00 Temperature 97.6 F Pulse Rate [Right Pulse Oximeter] 67 74 Respiratory Rate 16 16 Blood Pressure [Left Arm] 124/84 155/91 H Pulse Oximetry 97 100 99 Oxygen Delivery Method Room Air Room Air Room Air 03/21/25 23:00 03/21/25 23:00 03/22/25 03:00 Temperature 97.6 F Pulse Rate [Right Pulse Oximeter] 74 80 Respiratory Rate 16 16 16 Blood Pressure [Left Arm] Pulse Oximetry 100 Oxygen Delivery Method Room Air 03/22/25 07:00 03/22/25 07:00 03/22/25 07:00 Temperature 97.5 F L Pulse Rate [Right Pulse Oximeter] 80 79 Respiratory Rate 16 16 16 Blood Pressure [Left Arm] 128/89 Pulse Oximetry 99 99 Oxygen Delivery Method Room Air Room Air Documenting provider has reviewed patient's vital signs: yes Assessment and Plan Assessment and plan (1) Postoperative wound infection: Status: Acute (2) Status post incision and drainage: Problem details: Right shoulder 03/22/2025 Status: Acute Assessment and Plan: Two 4 x 4 Mepilex waterproof dressings are applied to the right shoulder, therefore Stephen can shower. He is currently on vancomycin 1.5 g IV every 24 hours. Culture and sensitivities still pending. I have asked the lab to keep cultures for 10 days in the event this is cuti bacterium/P acnes. There is possibility he will need another I&D. He will discharge today likely unless continued IV antibiotics as needed for osteomyelitis.
[2025-03-22 11:00] VITALS: BP 134/80; PULSE 82; RESP 16; TEMP 36.4; O2SAT 98
--- NOTE | 2025-03-22 11:22 | PC.SOCIAL ---
Discharge planning: SW met with patient and patient's partner to determine if there are any concerns or needs for home. Patient states no needs or concerns at this time. SW to assist if needs arise.
--- NOTE | 2025-03-22 15:29 | PC.NURSE ---
Discharge note: VS WNL. Afebrile. Discharged home with at 1335, ambulated ind. Dressing on right shoulder is C/D/I. CMS is intact. IV was removed, tip intact. Tolerating reg diet. Pt belongings and discharge instructions were gone through and signed.
== END 2025-03-22 13:35 | disposition home or self-care (01) | DRG 857 ==
LOC: ED 12:22 → SS 15:28 → MEDSURG 03-22 08:36 → SS 03-29 11:38 → MEDSURG 03-29 11:39
PROVIDERS: Admitting Provider Orthopaedic Surgery Sports Medicine; Emergency Provider Family Medicine; PCP Family Medicine; Visit Provider Orthopaedic Surgery Sports Medicine
PROC: 0RBJ4ZZ Excision of Right Shoulder Joint, Percutaneous Endoscopic Approach (ICD-10-PCS; CPT 29805; principal; 2025-03-20 17:00)
DX: T81.41XA Infection following a procedure, superficial incisional surgical site, initial encounter (principal); M86.8X1 Other osteomyelitis, shoulder; T81.42XA Infection following a procedure, deep incisional surgical site, initial encounter; G20.A1 Parkinson's disease without dyskinesia, without mention of fluctuations; M25.611 Stiffness of right shoulder, not elsewhere classified; S43.431A Superior glenoid labrum lesion of right shoulder, initial encounter
CPT/HCPCS: 01630; 36415; 73030; 80048; 84145; 85025; 85610; 85730; 86140; 87040; 87070; 87075; 87186; 87205; 97110; 97165; 99100; 99284; 99285; A9270; J0330; J0690; J1100; J1171; J1885; J2371; J2405; J2704; J3010; J3372; J3490; J7030; J7120

== ENCOUNTER 2025-06-15 11:45 | Outpatient (RCR) | payer MEDICARE, BC, SELFPAY ==
--- NOTE | 2025-02-11 12:29 | PT.OPE ---
PT Pamela Outpatient Eval PT MICHELLEL Outpatient Eval Start: 02/11/25 10:28 Freq: Status: Active Protocol: Document 02/11/25 12:11 FIGUEROAMariana (Rec: 02/11/25 12:26 LELIA [id number]) E-signed By Bora Walker, PT, ATC Physical Therapy Outpatient Evaluation Insurance Information Insurance Name Medicare B,Blue Cross/[employer] Medical Diagnosis Z98.890 other specified postprocedural states S/P Right shoulder scope LGHD, SAD, DCE, mini open RCR Treating Diagnosis R shoulder pain R shoulder stiffness Referring MD Lindsey Subjective Preferred Name Stephen Subjective Stephen is doing much better with his pain control since receiving a second nerve block last week following the surgery. Pain went from a 10/ 10 down to a 3/10. He is using the sling x 24 hours/day. Will now remove for pendulum ex as taught today. Long history of R shoulder discomfort and ever worsening strength and functional mobility. Hoping result of repair allows for improved ADL performance. Also reports having Parkinson's Disease and will need a stronger R shoulder and arm to manage challenges that could arise with this disease. He has his available to assist with self care needs and driving. Pain Comments 01/25 Date of Last Physician Visit 02/10/25 Current Work Status Retired Precautions Treatment Precautions/Contraindications PROM R shld x 6 weeks. Therapy Limitations/Systems Review Not Limited Objective Range of Motion PROM R shld: FLEX 90 ABD 75 ER 5 IR 40 Strength Not tested on R shoulder. L shoulder 5/5 all patterns. Swelling Generalized swelling exists around incision sites and R shoulder. Palpation Tender with palpation to upper trapezius, levator scapulae, pectoralis muscles. Posture Sits and stands with excessive forward flexion of upper trunk and rounded shoulders. Assessment Assessment/Impression Stephen is a soft spoken 69 year old, left handed, male recovering from his R RCR surgery on 02/04/25. He is using the cold therapy unit on a consistent basis as well as IBPF as needed to control symptoms. Sleeping is difficult and mostly still in his recliner. Observation of the shoulder healing looks normal and healthy week 1 s/p surgery. PROM limits as expected at this point of his recovery. Skilled PT is certainly recommended to advance Stephen through the healing process and assist with full return of R shoulder ROM, strength and functional ability. Primary Functional Limitations All ADL's-feeding, washing, grooming. Sleep Driving Plan of Care Rehabilitation Potential Good Physical Therapy Goals 6 week goals 1.Attend PT 1-2x per week for PROM, soft tissue mobilization and scapular stabilization exercise. 2.Pain to remain at 3/10 or less to permit improved ADL performance. 3.To lessen pain and soft tissue tightness allowing 4-5 consecutive hours of sleep per night. Coordination/Communication With Referral Source Treatment Plan/Direct Interventions Joint Mobilization,Manual Therapy,Self-Care/Home Management,Therapeutic Activities,Therapeutic Exercises Frequency/Duration 1-2x per week 16-20 weeks Patient Will Be Discharged From Therapy Independent w/HEP, Independently Progressing Evaluation Billing Untimed Code Treatment Minutes 30 PT Eval No Charge No Complexity Low Certification Information Initial Certification Date 02/11/25 Ending Certification Date 05/14/25 Provider Signature Required Yes Provider Signature Shows Agreement With POC & Medical Necessity Physician NPI Number Write NPI# Here Physician Comment/Change : Physician Signature & Date Requested Please Sign/Date Here
--- NOTE | 2025-05-18 12:15 | PT.OPDN ---
PT [facility] Out[facility] Daily Note PT [facility] Out[facility] Daily Note Start: 02/11/25 10:28 Freq: Status: Active Protocol: Document 05/18/25 12:02 [email or web address] (Rec: 05/18/25 12:11 LELIA [id number]) E-signed By Bora Walker, PT, ATC PT OP Daily Progress Note Visit Information Note Type Recert/Progress Note Visit Number 20 Insurance Authorized tbd Visits Physician Authorized eval and treat Visits Insurance Information Insurance Name Medicare B,Blue [employer] Medical Diagnosis [id number] other specified postprocedural states S/P Right shoulder scope LGHD, SAD, DCE, mini open RCR Treating Diagnosis R shoulder pain R shoulder stiffness Referring MD Lindsey Subjective Preferred Name Stephen Houston Able to start and run rototiller in garden over the weekend and wash small equipment using the R shoulder. Happy with these accomplishments. Feeling weak still at and above shoulder level yet understands this to be normal for week 14 of the recovery process. 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 Unable to reach above shoulder to rail on tractor to securely assist self into cab. Will need to do this by harvest. No shoulder pain, just aches some at times. Pain Comments Date of Last 02/10/25 Physician Visit Home Exercise Home Exercise Access Code [employer] [facility]: [id number] Comments Access Code: [email or web address] URL: [email or web address] Date: 02/15/2025 Prepared by: Jackson Hernandez Exercises - Circular Shoulder Pendulum with Table Support - 2-3 x daily - 7 x weekly - 1-2 sets - 10-20 reps - Seated Cervical Rotation AROM - 2 x daily - 7 x weekly - 1 sets - 10 reps - Seated Cervical Sidebending AROM - 2 x daily - 7 x weekly - 1 sets - 10 reps - Seated Cervical Flexion AROM - 2 x daily - 7 x weekly - 1 sets - 10 reps - Seated Cervical Extension AROM - 2 x daily - 7 x weekly - 1 sets - 10 reps - Seated Elbow Flexion and Extension AROM - 2 x daily - 7 x weekly - 1 sets - 10 reps - Seated Forearm Pronation and Supination AROM - 2 x daily - 7 x weekly - 1 sets - 10 reps - Wrist AROM Flexion Extension - 2 x daily - 7 x weekly - 1 sets - 10 reps - Seated Scapular Retraction - 2 x daily - 7 x weekly - 1-2 sets - 10 reps - 3 seconds hold Objective Other/Pertinent PROM R shld: 03/17/25 04/05/25 04/13/25 6/ Objective 12/12 Strength Flex 140 135 150 155 4/5 Abd 90 90 95 95 4-/5 ER 46 25 55 58 4/5 IR 50 50 50 50 4+/5 Patient Instructed Yes in Risks/Benefits Therapeutic Exercise Therapeutic Exercise 45 Minutes (minutes) Therapeutic Exercise UBE x 5 min, R arm only : To Restore Shelf stacking at 100 degrees flexion, 1# 2x10 Functional Status Table slides, circles x 15 3# Wall slides 2x5 Table incline slides 2x10 3# Supine R shld flex 2x12 Supine R shld press 2x12 Supine (30 degree incline) shld flex 3x10 Supine R shld flex-ext from 0-100 1-2# degrees 2x10 Supine R shld press with elbow bent 3# 2x10 Supine R shld IR green tband manual resist 2x10 Supine R shld ER red tband 2x10 Manual resistance D1 D2 shoulder lifts from supine 2x10 each Single R arm cable pulls-rows 4 plates 2x10 Single R arm cable pull downs 2.5 plates 2x10 Manual Therapy Techniques Manual Therapy 5 Minutes (minutes) Manual Therapy ST and GH joint mobilization in all directions in Techniques supine and L side lying positions. Soft tissue manipulation of R side suboccipitals, cervical paraspinals, scalenes, SCM, UT, levator scap, infraspinatus, supraspinatus, subscapularis, biceps, triceps, and forearm extensors/flexors. PROM R shoulder in all directions for improved mobility and symptoms. Treatment Minutes Timed Code Treatment 50 Minutes Total Treatment Time 50 Billing Units Therapeutic Exercise 3 Units Assessment/Impression Assessment/ Continued PT recommended to further R shoulder strength Impression and function, shabnam above shoulder height. Showing steady gains in all areas of recovery and abilities. He is working consistently with his ex.s outside of PT. Passive range may have hit end limits yet room for improvement remains with active range and R shoulder strength. Extremely compliant with both exercise performance and PT attendance. 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 Limitations Sleep Driving Plan of Care Physical Therapy 20 week goals Goals 1.[place] with home ex program for strength, AAROM and scapular stabilization. 2.Pain to remain at 1/10 or less to permit improved ADL performance. 3.Active R shoulder ROM to 90 degrees allowing ease with dressing and stacking items at shoulder height. 4.Improve R shoulder strength to 4/5 all patterns allowing independent and safe operation of farm vehicles. 5.Sufficient R shoulder AROM and strength to permit safe transfers into and from farm equipment while using the R arm for support. Daily Plan of Care Continue per POC Daily Plan of Care To follow protocol. Comments Student Supervision Licensed PT Directed/Approved Treatment,Reviewed POC with Patient, Made Contact with Patient,Participated in Treatment Documentation Yes Reviewed By Coffee Maker Recertification Information Initial 02/11/25 Certification Date Recertification 05/18/25 Start Date Recertification Due 08/18/25 Date Reasons to Continue Deficits remain with R shoulder AROM and strength. Skilled Therapy Needs additional work to make transfers into farm equipment safe. Rehabilitation Good Potential Continued Plan of Continue to advance R shoulder strength, ROM and Care and functional movement patterns. Interventions Provider Signature POC & Medical Necessity Shows Agreement With Physician Comment/ Comment or Changes Change Physician NPI Number #
== END 2025-06-15 13:18 | disposition home or self-care (01) ==
PROVIDERS: PCP Family Medicine; Visit Provider Orthopaedic Surgery
DX: Z48.89 Encounter for other specified surgical aftercare (principal); Z51.89 Encounter for other specified aftercare; M25.511 Pain in right shoulder
CPT/HCPCS: 97110; 97140; 97161